=== PATIENT | male | born 1970 | race Caucasian/White ===

== ENCOUNTER → 2023-11-18 12:13 | Outpatient (REF) | payer MEDICARE, BC, SELFPAY ==
[2023-11-18 13:37] LABS: Urine Albumin Negative (Neg - Trace); Urine Bilirubin Negative (Negative); Urine Character Clear (Clear); Urine Color Yellow; Urine Glucose Negative (Negative); Urine Ketone Negative (Negative); Urine Leukocyte Negative (Negative); Urine Nitrite Negative (Negative); Urine Occult Blood 1+ (Negative); Urine Specific Gravity 1.025 (<1.030); Urine Urobilinogen Negative (Neg - 1+)
[2023-11-18 13:39] LABS: % Basophils 0.5 % (0-2); % Eosinophils 1.8 % (0-6); % Immature Granulocytes 0.3 % (0-0.5); % Lymphocytes 30.4 % (20.5-51.1); % Monocytes 7.7 % (1.7-9.3); % Neutrophils 59.3 % (42.2-75.2); Absolute Eosinophils 0.1 10^3/uL (0-0.7); Absolute Lymphocytes 1.9 10^3/uL (1.2-3.4); Absolute Monocytes 0.5 10^3/uL (0.1-0.6); Absolute Neutrophils 3.6 10^3/uL (1.4-6.5); Hematocrit 41.6 % (39.0-52.0); Hemoglobin 14.4 g/dL (13.0-18.0); Mean Corp Hgb Conc. 34.6 g/dL (33.0-37.0); Mean Corpuscular Hgb 29.5 pg (27.0-31.0); Mean Corpuscular Volume 85.2 fL (80.0-94.0); Mean Platelet Volume 11.6 fL (7.4-10.4); Nucleated Red Blood Cells % 0 % (-); Platelet Count 217 10^3/uL (130-400); Red Blood Cell Count 4.88 10^6/uL (4.70-6.10); Red Cell Dist. Width 12.2 % (11.5-14.5); White Blood Cell Count 6.1 10^3/uL (4.8-10.8)
[2023-11-18 14:01] LABS: Urine Mucus Many
[2023-11-18 14:02] LABS: Urine Red Blood Cell 0-2 /HPF (0-2); Urine White Cell 0-2 /HPF (0-5)
[2023-11-18 14:05] LABS: ALT (SGPT) 26 U/L (0-50); AST (SGOT) 26 U/L (17-59); Albumin 4.6 g/dl (3.5-5.0); Alkaline Phosphatase 44 U/L (38-126); Blood Urea Nitrogen 18 mg/dl (9-20); Calcium 9.5 mg/dl (8.4-10.2); Carbon Dioxide 31 mmol/L (22-30); Chloride 104 mmol/L (98-107); Glucose 86 mg/dl (70-99); Potassium 4.3 mmol/L (3.5-5.1); Sodium 141 mmol/L (135-145); Total Bilirubin 0.7 mg/dl (0.2-1.3); Total Protein 7.3 g/dl (6.3-8.2); eGFR > 60.00
[2023-11-18 14:42] LABS: PSA, Total - Screen 2.09 ng/ml (0.0-4.0)
== END ==
LOC: REG 12:13
PROVIDERS: ATTENDING PHYSICIAN Family Medicine
DX: R10.9 Unspecified abdominal pain (principal); R10.2 Pelvic and perineal pain; Z12.5 Encounter for screening for malignant neoplasm of prostate
CPT/HCPCS: 36415; 80053; 81003; 81015; 85025; 87086; G0103

== ENCOUNTER → 2023-11-20 10:22 | Outpatient (REF) | payer MEDICARE, BC, SELFPAY | LOC: RAD 10:22 | PROVIDERS: ATTENDING PHYSICIAN Family Medicine | DX: R10.9 Unspecified abdominal pain (principal); R10.2 Pelvic and perineal pain | CPT/HCPCS: 74178; Q9967 ==

== ENCOUNTER 2024-01-11 21:06 | Emergency (ER) | payer MEDICARE, SELFPAY ==
[2024-01-11 21:09] VITALS: BP 124/79
[2024-01-11 21:39] LABS: Hematocrit 40.6 % (39.0-52.0); Hemoglobin 14.5 g/dL (13.0-18.0); Mean Corp Hgb Conc. 35.7 g/dL (33.0-37.0); Mean Corpuscular Hgb 29.8 pg (27.0-31.0); Mean Corpuscular Volume 83.4 fL (80.0-94.0); Mean Platelet Volume 11.4 fL (7.4-10.4); Platelet Count 175 10^3/uL (130-400); Red Blood Cell Count 4.87 10^6/uL (4.70-6.10); Red Cell Dist. Width 12.2 % (11.5-14.5)
[2024-01-11 21:54] LABS: COVID-19 Antigen Positive (Negative)
[2024-01-11 21:58] LABS: Absolute Neutrophils -Man Diff 2.4 10^3/uL (1.4-6.5); Band Neutrophils 0 % (0-3); Lymphocytes 32 % (20-51); Monocytes 18 % (2-9); Segmented Neutrophils 48 % (42-75)
[2024-01-11 21:59] LABS: Atypical Lymphocytes 2 %; Normal RBC Morphology Yes; Platelets Checked Yes; Total Cells Counted 100
[2024-01-11 22:10] LABS: ALT (SGPT) 28 U/L (0-50); AST (SGOT) 34 U/L (17-59); Albumin 4.5 g/dl (3.5-5.0); Alkaline Phosphatase 46 U/L (38-126); Blood Urea Nitrogen 16 mg/dl (9-20); Calcium 9.5 mg/dl (8.4-10.2); Carbon Dioxide 30 mmol/L (22-30); Chloride 102 mmol/L (98-107); Glucose 97 mg/dl (70-99); Potassium 4.4 mmol/L (3.5-5.1); Sodium 140 mmol/L (135-145); Total Bilirubin 0.5 mg/dl (0.2-1.3); eGFR > 60.00
--- NOTE | 2024-01-11 22:33 | ED.GENMED ---
History of Present Illness
General
Chief Complaint: Fever
Source: patient and family (Mother)
Time Seen by Provider: 01/11/24 22:15
History of Present Illness
History of Present Illness:
For evaluation of fever.53-year-old male presents to the emergency room with his mother. Patient has a cough. He seems to be acting 'delusional' with a fever. Patient is awake and alert but allows his mom to answer questions for him. Mother also
concerned about a bacterial infection all over his body. Patient evidently had an abnormal CAT scan which showed 'inflammation in all the organs of his lower abdomen.'
Past History
Past History
ED Past Medical History: Hypercholesterolemia and Psychiatric (intellectual delay)
ED Past Surgical History: Other (Biopsy of the testicle)
Social History
Tobacco: Non-smoker
Personal: Single
Living: with family
Employment: Employed
Phy Exam
Physical Exam
Physical Exam:
General: Awake, Alert, Oriented X3. No acute distress.
Vitals: unremarkable
Head: Atraumatic
Eyes: Pupils equal, EOMI
Neck: Trachea midline
Lungs: Clear and equal b/l
Heart: Regular rate, no murmurs
Neuro: Grossly nonfocal
Skin: Warm, dry, no rash
Extremities: pulses equal b/l, no edema
Course
Orders/Labs/Results
Orders:
Orders
01/11/24 21:25
Complete Blood Count/With Diff Urgent
Comprehensive Metabolic Panel Urgent
Manual Differential Urgent
01/11/24 21:28
COVID-19 Antigen Urgent
Source: Nasal Swab
INF RAPID [Influenza A+B Rapid Molecular] Urgent
GINNY Source: Nasal Swab
Specimen Description:
01/11/24 22:35
Acetaminophen [Tylenol] 650 mg PO NOW STA
Abnormal Lab Results
01/11/24 01/11/24
21:25 21:28
MPV 11.4 H fL
(7.4-10.4)
Monocytes (Manual) 18 H %
(2-9)
SARS-CoV-2 Antigen Positive A
(Negative)
01/11/24 21:25
01/11/24 21:25
Vital Signs
Initial and Last Documented VS:
Initial Vital Signs
Temp Pulse Resp BP Pulse Ox
98.7 F 68 16 124/79 98
01/11/24 21:09 01/11/24 21:09 01/11/24 21:09 01/11/24 21:09 01/11/24 21:09
Last Documented Vital Signs
Temp Pulse Resp BP Pulse Ox
97.8 F 78 16 127/94 98
01/11/24 22:55 01/11/24 22:55 01/11/24 21:09 01/11/24 22:55 01/11/24 22:55
MDM/Problems Addressed
Differential Diagnosis Includes:
Viral illness
MDM/Problems Addressed:
Patient presents with fever and cough. He is not hypoxic. Labs were obtained in triage, CBC is normal. Chemistries are normal. COVID test is positive. Positive COVID test explains the patient's symptoms. Mom asked breast concerns about a
lesion in his lower abdomen. A CT scan was performed today which I reviewed the results of. It did show some inflammatory changes of the bladder as well as minimal inflammatory changes at the rectosigmoid colon. He had a urinalysis and urine
culture performed on November 17 which showed no growth. An outpatient investigation of these abnormalities is underway. Not believe any further testing is required here in the emergency room given we have a very reasonable explanation for his fever
with positive COVID test. Additionally the patient is not tachycardic. His blood pressure is normal. He is ambulatory in the room without any difficulty obvious discomfort.
*Critical Care Note
Total Time (30-74mins, 75-104mins- exclusive of procedures): Not Applicable
ED Attending Note
-
Portions of this chart may have been created with voice recognition software.� Occasional wrong word or��sound alike� substitutions may have occurred due to the inherent limitations of voice recognition software.
Discharge Plan
Departure
Patient Disposition: Home (Routine Discharge)
Date of Disposition: 01/11/24
Time of Disposition: 22:34
Patient with high blood pressure during this ER visit?: No
Condition: Good
Discharge Problem:
COVID-19
Instructions: COVID-19 ED
Prescriptions:
No Action
omega 4-ngw-iwc-fish oil [Fish Oil] 1 EACH capsule
1 - 3 ea PO DAILY
biotin 5,000 MCG tablet,disintegrating
5,000 mcg PO DAILY
Stinging Metal Root
1 - 2 tab PO DAILY
oxycodone 5 MG tablet
5 mg PO Q4HPRN PRN (Reason: breakthrough/severe pain) Qty: 7 0RF
nitrofurantoin monohyd/m-cryst [Macrobid] 100 mg capsule
100 mg PO Q12H 5 Days Qty: 10 0RF
Interventions
Interventions:
*Risk Screen - Suicide Last Done: 01/11/24 21:09
*General Assessment Last Done: 01/11/24 22:55
*Neglect/Abuse Screening Last Done: 01/11/24 22:55
*Nursing Disposition Last Done: 01/11/24 22:55
ED- Neurological Assessment Last Done: 01/11/24 22:56
ED-Skin Assessment Last Done: 01/11/24 22:56
Discharge Date and Time
Discharge Date/Time: 01/12/24 02:30
Print Language: PORTUGUESE
[2024-01-11] MEDS: TYLENOL 650 MG PO (22:39)
[2024-01-11 22:55] VITALS: BP 127/94
== END 2024-01-12 02:30 | disposition home or self-care (01) ==
LOC: EMR 21:06
PROVIDERS: Student in an Organized Health Care Education/Training Program; EMERGENCY PHYSICIAN Emergency Medicine
DX: U07.1 COVID-19 (principal); E78.00 Pure hypercholesterolemia, unspecified
CPT/HCPCS: 99283; 80053; 85025; 87502; 87811

== ENCOUNTER → 2024-02-11 15:45 | Outpatient (REF) | payer MEDICARE, SELFPAY ==
[2024-02-11 17:42] LABS: Urine Albumin Negative (Neg - Trace); Urine Bilirubin Negative (Negative); Urine Character Clear (Clear); Urine Color Yellow; Urine Glucose Negative (Negative); Urine Ketone Negative (Negative); Urine Leukocyte Negative (Negative); Urine Nitrite Negative (Negative); Urine Occult Blood Trace (Negative); Urine Specific Gravity 1.015 (<1.030); Urine Urobilinogen Negative (Neg - 1+)
[2024-02-11 17:59] LABS: Urine Red Blood Cell 0-2 /HPF (0-2)
== END ==
LOC: REG 15:45
PROVIDERS: ATTENDING PHYSICIAN Family Medicine
DX: N39.9 Disorder of urinary system, unspecified (principal); N40.0 Benign prostatic hyperplasia without lower urinary tract symptoms
CPT/HCPCS: 36415; 81003; 81015; 87086

== ENCOUNTER → 2024-03-28 06:24 | Day surgery (SDC) | payer MEDICARE, BC, SELFPAY | LOC: GI 06:24 | PROVIDERS: ATTENDING PHYSICIAN Internal Medicine Gastroenterology | DX: Z12.11 Encounter for screening for malignant neoplasm of colon (principal); K64.8 Other hemorrhoids | CPT/HCPCS: G0121 ==

== ENCOUNTER → 2024-04-27 17:22 | Outpatient (REF) | payer MEDICARE, BC, SELFPAY | LOC: MRI 17:22 | PROVIDERS: ATTENDING PHYSICIAN Psychiatry & Neurology Neurology; FAMILY PHYSICIAN Family Medicine | DX: G30.0 Alzheimer's disease with early onset (principal); F02.818 Dementia in other diseases classified elsewhere, unspecified severity, with other behavioral disturbance | CPT/HCPCS: 70551 ==

== ENCOUNTER → 2024-05-18 13:03 | Outpatient (REF) | payer MEDICARE, BC, SELFPAY | LOC: RAD 13:03 | PROVIDERS: ATTENDING PHYSICIAN Internal Medicine Endocrinology, Diabetes & Metabolism; FAMILY PHYSICIAN Family Medicine | DX: E04.2 Nontoxic multinodular goiter (principal) | CPT/HCPCS: 76536 ==

== ENCOUNTER → 2024-05-25 14:12 | Outpatient (REF) | payer MEDICARE, BC, SELFPAY ==
[2024-05-25 15:53] LABS: C-Reactive Protein < 5.00 mg/L (0.0-10.00)
[2024-05-25 15:54] LABS: Erythrocyte Sed Rate 8 mm/hour (0-20)
[2024-05-25 17:14] LABS: Hematocrit 40.8 % (39.0-52.0); Mean Corp Hgb Conc. 34.3 g/dL (33.0-37.0); Mean Corpuscular Hgb 30.4 pg (27.0-31.0); Mean Corpuscular Volume 88.5 fL (80.0-94.0); Mean Platelet Volume 11.9 fL (7.4-10.4); Platelet Count 203 10^3/uL (130-400); Red Blood Cell Count 4.61 10^6/uL (4.70-6.10); Red Cell Dist. Width 12.4 % (11.5-14.5)
[2024-05-27 10:49] LABS: Rheumatoid Agglutinin Less Than 10 IU (<10 IU)
[2024-05-28 06:34] LABS: ANA, IgG Reflex to HEp-2 None Detected (None Detected)
== END ==
LOC: REG 14:12
PROVIDERS: ATTENDING PHYSICIAN Family Medicine
DX: R68.89 Other general symptoms and signs (principal); E55.9 Vitamin D deficiency, unspecified; E78.5 Hyperlipidemia, unspecified; Z79.899 Other long term (current) drug therapy
CPT/HCPCS: 36415; 85027; 85652; 86038; 86140; 86430

== ENCOUNTER 2024-07-11 18:22 | Observation (INO) | payer MEDICARE, SELFPAY ==
[2024-07-11 15:06] VITALS: BP 98/72; BMI 27.2
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
[2024-07-11] MEDS: NSS 1000 IV (15:43)
[2024-07-11 16:00] VITALS: BP 99/68
[2024-07-11 16:03] LABS: % Basophils 0.4 % (0-2); % Eosinophils 1.4 % (0-6); % Immature Granulocytes 0.3 % (0-0.5); % Lymphocytes 20.4 % (20.5-51.1); % Monocytes 11.8 % (1.7-9.3); % Neutrophils 65.7 % (42.2-75.2); Absolute Eosinophils 0.1 10^3/uL (0-0.7); Absolute Lymphocytes 1.4 10^3/uL (1.2-3.4); Absolute Monocytes 0.8 10^3/uL (0.1-0.6); Absolute Neutrophils 4.6 10^3/uL (1.4-6.5); Hematocrit 40.7 % (39.0-52.0); Hemoglobin 13.6 g/dL (13.0-18.0); Mean Corp Hgb Conc. 33.4 g/dL (33.0-37.0); Mean Corpuscular Hgb 29.2 pg (27.0-31.0); Mean Corpuscular Volume 87.3 fL (80.0-94.0); Mean Platelet Volume 11.6 fL (7.4-10.4); Nucleated Red Blood Cells % 0 % (-); Platelet Count 206 10^3/uL (130-400); Red Blood Cell Count 4.66 10^6/uL (4.70-6.10); Red Cell Dist. Width 12.4 % (11.5-14.5)
[2024-07-11 16:12] LABS: Acetaminophen < 10 ug/ml (10-30); Blood Urea Nitrogen 24 mg/dl (9-20); Calcium 9.1 mg/dl (8.4-10.2); Carbon Dioxide 29 mmol/L (22-30); Chloride 105 mmol/L (98-107); Estimated Creatinine Clearance 80 ml/min; Glucose 106 mg/dl (70-99); Potassium 4.2 mmol/L (3.5-5.1); Salicylate < 1.0 mg/dl (2.0-20.0); Sodium 141 mmol/L (135-145); eGFR > 60.00
[2024-07-11 16:13] LABS: Alcohol None Detected
[2024-07-11 16:18] LABS: COVID-19 Antigen Negative (Negative)
[2024-07-11 16:39] VITALS: BP 101/66
[2024-07-11 16:51] LABS: TSH Reflex To Free T4 1.25 uIU/ml (0.47-4.68)
--- NOTE | 2024-07-11 16:52 | HPS.HSE ---
Family Physician
-
Family Physician: * NONE
Chief Complaint
-
confusion
History of Present Illness
53-year-old male with history of TBI, hyperlipidemia, hypotension presenting to the emergency department with change in mental status and urinary incontinence. Unfortunately given patient's TBI he is unable to provide any additional history.
patient sent in due to urinary incontinence and confusion more than usual.patient was combative at home. patient denied any acute pain. as per his mom, he acts this way when he gets UTI.
admitting for further management.
Medical History
Past Medical History
Past Medical History: Reports Other
Additional Past Medical History:
HLD
BPH
ADD
chest pain
Past Surgical History: Reports Other
Additional Past Surgical History:
nasal surgery
testicular surgery
cholecystectomy
Social History
Tobacco: Non-smoker
Alcohol: None
Drug: None
Living: With Family
Family History
Family History: Not pertinent
Allergies / Home Medications
Allergies reflects when Allergies were last updated in [facility].
Home Medications with original date entered in [facility]
Allergy/Medication List:
Allergies
Allergy/AdvReac Type Severity Reaction Status Date / Time
No Known Allergies Allergy Verified 07/11/24 15:06
Home Medications
Stinging Metal Root 1 - 2 tab PO DAILY 03/23/20
biotin 5,000 mcg disintegrating tablet 5,000 mcg PO DAILY 03/23/20
omega 0-hlx-byv-fish oil 300 mg-1,000 mg capsule (Fish Oil) 1 - 3 ea PO DAILY 03/23/20
oxycodone 5 mg tablet 5 mg PO Q4HPRN PRN breakthrough/severe pain #7 tabs 03/26/20
nitrofurantoin monohydrate/macrocrystals 100 mg capsule (Macrobid) 100 mg PO Q12H 5 days #10 caps 06/27/22
Review of Systems
-
Unable to obtain full review of systems at this time due to: Acuity
Physical Exam
Vital Signs
Vital Signs
Temp Pulse Resp BP Pulse Ox
98.1 F 70 18 98/72 98
07/11/24 15:06 07/11/24 15:06 07/11/24 15:06 07/11/24 15:06 07/11/24 15:06
Physical Exam
General: Well Developed, Well Nourished and No Apparent Distress
HEENT: NormoCephalic, Moist mucous membranes and Atraumatic
Respiratory: Clear
Cardiac: S1/S2 and Regular Rhythm; No Murmur or Rub
GI: Soft, Non Tender, Non Distended and Normal Bowel Sounds; No Organomegaly
Rectal: Deferred by Provider
Musculoskeletal: No Clubbing, No Cyanosis and No Edema
Skin: No Rash
Neuro: Nonfocal/grossly intact
Psych: Calm
Laboratory Results
-
07/11/24 15:46
07/11/24 15:46
Data Reviewed
-
Diagnostic Radiology: Report Reviewed by me
Lab Data: Labs Reviewed by me
Impression/Plan
-
#metabolic encephalopathy Unclear cause likely UTI
-UA negative
-CT negative
-chest x ray negative
-COVID and flu negative
-continue to monitor
-iv ceftriaxone
#hxt of TBI/ADD
#DVT prophylaxis
-Lovenox
#CODE status
-full code
--- NOTE | 2024-07-11 16:53 | EDRN ---
30MM CONDOM CATHETER APPLIED FOR URINE COLLECTION AND INCONTINENCE. PATIENT HAS EXISTING ABRASION TO ANTERIOR SHAFT OF PENIS.
[2024-07-11 17:00] VITALS: BP 110/72
--- NOTE | 2024-07-11 17:46 | W.PN.UPDATE ---
Update Note
Progress Note Update
This is an addendum to the H&P written by Lorraine Martínez on 07/11/2024. Patient seen and examined independently with SALES OPERATIONS MANAGER.
53-year-old male past medical history of TBI, hyperlipidemia, prior UTI presenting with change in mental status and urine incontinence for the past 2 days. Patient states that he has been having some urinary frequency and discomfort with urination.
Metabolic encephalopathy secondary to likely UTI. Urinalysis still pending. Chest x-ray negative. CT head negative. IV fluids, ceftriaxone.
[2024-07-11 20:44] VITALS: BP 115/60
[2024-07-12] MEDS: NSS 1000 IV (01:36)
[2024-07-12] MEDS: LOVENOX 40 MG SC ×2 (01:37→20:02)
[2024-07-12] MEDS: ROCEPHIN 1000 MG IV (01:40)
[2024-07-12] MEDS: STERILE WATER FOR INJECTION 10 ML IV (01:40)
[2024-07-12 01:46] VITALS: BP 97/58
[2024-07-12 06:00] VITALS: BMI 24.8
[2024-07-12 07:13] VITALS: BP 109/78
[2024-07-12 08:04] LABS: Urine Albumin Negative (Neg - Trace); Urine Bilirubin Negative (Negative); Urine Character Clear (Clear); Urine Color Yellow; Urine Glucose Negative (Negative); Urine Ketone Negative (Negative); Urine Leukocyte Negative (Negative); Urine Nitrite Negative (Negative); Urine Occult Blood 1+ (Negative); Urine Urobilinogen Negative (Neg - 1+)
[2024-07-12 08:08] LABS: Urine Red Blood Cell 0-2 /HPF (0-2); Urine Squamous Cell 0-2 /LPF (Few); Urine White Cell 0-2 /HPF (0-5)
--- NOTE | 2024-07-12 09:14 | W.PN.HOSP.TC ---
Today's Communication/Plan
-
Continued ceftriaxone pending cultures
PSA.
Renal bladder sonogram
Bladder scan rule out retention
Assessment / Plan
Assessment / Plan
Impression:
Presentation with agitation, urinary and bowel incontinence.
Suspected UTI.
Traumatic brain injury with developmental delay.
Plan:
Afebrile, hemodynamically stable
Currently with no urinary symptoms
Mental status back to normal/baseline.
Normal white count.
Normal urinalysis.
No abnormalities on chest x-ray.
COVID/influenza negative on admission.
Mother who is a retired physician describes a current episode of bowel and urinary incontinence.
In addition patient had been evaluated for pelvic pain with pending urology consult as outpatient.
CT scan of the abdomen pelvis from 11/19, findings consistent with diffuse urinary bladder wall thickening consistent with inflammation or infection.
Less likely UTI given normal urinalysis.
Continue ceftriaxone for another 24 to 48 hours.
Check PSA.
Check renal and bladder sonogram.
Bladder scan to rule out retention
Developmental delay/TBI.
Mental status back to normal with no focal findings on neurologic exam.
Patient with no prior history of seizures.
Not on any neurologic medications prior to presentation
Current presentation does not suggest a typical seizure as well.
Monitor while in the hospital
Anticipated Discharge: 24 - 48 hours
Subjective/Interval History
-
Date of Service: July 12, 2024
Objective Data
-
Vital Signs:
Vital Signs
Temp Pulse Resp BP Pulse Ox
98.3 F 72 18 109/78 99
07/11/24 20:44 07/12/24 07:13 07/12/24 07:13 07/12/24 07:13 07/12/24 07:13
Physical Exam
-
General: Well Developed and No Apparent Distress
HEENT: Normocephalic, Atraumatic and Moist Mucous Membranes
Respiratory: Clear to Auscultation
Cardiac: Regular Rhythm and S1/S2; Negative Murmur, Rub or Gallop
GI: Soft, Nontender, Nondistended and Normal Bowel Sounds; Negative Organomegaly
Rectal: Deferred by Provider
Musculoskeletal: No Clubbing, No Cyanosis and No Edema
Skin: Negative Rash
Neuro: Nonfocal/Grossly Intact
[2024-07-12 10:46] LABS: PSA, Total - Screen 2.18 ng/ml (0.0-4.0)
[2024-07-12] MEDS: NSS IV (15:43)
[2024-07-12 17:30] VITALS: BP 119/79
[2024-07-12 23:22] VITALS: BP 131/66
[2024-07-13] MEDS: ROCEPHIN 1000 MG IV (02:00)
[2024-07-13] MEDS: STERILE WATER FOR INJECTION 10 ML IV (02:01)
[2024-07-13 08:06] VITALS: BP 124/87
--- NOTE | 2024-07-13 15:04 | W.DS.TRANS ---
DC Summary - Recoverer
-
Discharge Instructions:
Discharge Diagnosis/Procedures Agitation
Diet Regular
Instructions:
Stand-Alone Forms:
Changes to Home Medications: No
Discharge Medications:
DC Medications w/original date entered in [facility]
No Meds [No Current Medications] 07/11/24
Home Medication Changes
Pending Results: No
[2024-07-13 15:28] VITALS: BP 116/77
== END 2024-07-13 16:30 | disposition home or self-care (01) ==
LOC: 3 WEST ACU 18:22
PROVIDERS: ADMITTING PHYSICIAN Hospitalist; ATTENDING PHYSICIAN Internal Medicine; EMERGENCY PHYSICIAN Student in an Organized Health Care Education/Training Program; FAMILY PHYSICIAN Family Medicine
DX: R45.1 Restlessness and agitation (principal); G93.41 Metabolic encephalopathy; R62.7 Adult failure to thrive; E78.00 Pure hypercholesterolemia, unspecified; I95.9 Hypotension, unspecified; R32 Unspecified urinary incontinence; F81.9 Developmental disorder of scholastic skills, unspecified; R05.9 Cough, unspecified; R15.9 Full incontinence of feces; R10.2 Pelvic and perineal pain; N28.1 Cyst of kidney, acquired; R44.1 Visual hallucinations; R41.0 Disorientation, unspecified; N40.0 Benign prostatic hyperplasia without lower urinary tract symptoms; Z87.820 Personal history of traumatic brain injury; Z86.16 Personal history of COVID-19; Z90.49 Acquired absence of other specified parts of digestive tract; Z11.52 Encounter for screening for COVID-19; Z12.5 Encounter for screening for malignant neoplasm of prostate
CPT/HCPCS: 70450; 71046; 76770; 80048; 80143; 80179; 81003; 81015; 82077; 84443; 85025; 87086; 87502; 87811; 93005; 96360; 99285; G0103; G0378

== ENCOUNTER 2024-08-13 13:36 | Emergency (ER) | payer MEDICARE, SELFPAY ==
[2024-08-13 13:45] VITALS: BP 110/76
[2024-08-13 13:46] VITALS: BP 110/76
[2024-08-13 14:00] VITALS: BP 100/71
[2024-08-13 14:10] LABS: Hematocrit 38.8 % (39.0-52.0); Hemoglobin 13.1 g/dL (13.0-18.0); Mean Corp Hgb Conc. 33.8 g/dL (33.0-37.0); Mean Corpuscular Hgb 29.4 pg (27.0-31.0); Mean Platelet Volume 11.2 fL (7.4-10.4); Platelet Count 130 10^3/uL (130-400); Red Blood Cell Count 4.46 10^6/uL (4.70-6.10); Red Cell Dist. Width 12.1 % (11.5-14.5); White Blood Cell Count 2.6 10^3/uL (4.8-10.8)
[2024-08-13 14:25] LABS: COVID-19 Antigen Negative (Negative)
[2024-08-13 14:40] LABS: ALT (SGPT) 50 U/L (0-50); AST (SGOT) 37 U/L (17-59); Alkaline Phosphatase 42 U/L (38-126); Blood Urea Nitrogen 17 mg/dl (9-20); Calcium 8.4 mg/dl (8.4-10.2); Carbon Dioxide 30 mmol/L (22-30); Chloride 103 mmol/L (98-107); Glucose 91 mg/dl (70-99); Potassium 4.6 mmol/L (3.5-5.1); Sodium 140 mmol/L (135-145); Total Bilirubin 0.6 mg/dl (0.2-1.3); Total Protein 6.4 g/dl (6.3-8.2); eGFR > 60.00
[2024-08-13 14:50] LABS: % Basophils 0.4 % (0-2); % Eosinophils 2.3 % (0-6); % Lymphocytes 54.7 % (20.5-51.1); % Monocytes 13.6 % (1.7-9.3); Absolute Eosinophils 0.1 10^3/uL (0-0.7); Absolute Lymphocytes 1.4 10^3/uL (1.2-3.4); Absolute Monocytes 0.4 10^3/uL (0.1-0.6); Absolute Neutrophils 0.8 10^3/uL (1.4-6.5); Nucleated Red Blood Cells % 0 % (-)
[2024-08-13 15:27] VITALS: BP 125/85
--- NOTE | 2024-08-13 19:08 | ED.GENMED ---
History of Present Illness
General
Chief Complaint: Cold/Flu/URI Symptoms
Source: patient and family
Exam Limitations: none
Time Seen by Provider: 08/13/24 18:05
Nursing documentation reviewed up to this point in time: agreed with
History of Present Illness
History of Present Illness:
Patient with history of TBI, presents to ED secondary to intermittent cough over the past couple of days. Information obtained from the paramedics, who spoke with patient's mother. Upon arrival, patient is alert and awake, but confused, and unable
to provide any further information. Per paramedics, his mental status at his baseline.
Past History
Past History
ED Past Medical History: Hypercholesterolemia and Psychiatric (intellectual delay)
ED Past Surgical History: Other (Biopsy of the testicle)
Social History
Tobacco: Non-smoker
Personal: Single
Living: with family
Employment: Employed
Review of Systems
Review of Systems
Allergies reviewed?: Yes
Unable to obtain full review of systems at this time due to: other (TBI)
All Other Systems: Not applicable
Phy Exam
Physical Exam
Physical Exam:
Physical Exam
General: no apparent distress, not acutely ill. afebrile
Head: nc/at. eomi
Neck: supple. normal range of motion.
Heart: s1/s2 regular rate and rhythm, no murmur.
Lungs: no acute respiratory distress. clear bilaterally
Abdomen: normal bowel sounds. not tender.
Neuro: alert and oriented x 1. no focal neurological deficits
Skin: no rash
Psychiatric: well kept. interactive
Extremities: no edema. no calf tenderness.
Course
Orders/Labs/Results
Orders:
Orders
08/13/24 13:41
Electrocardiogram (*1) Urgent
Reason for Study: Other
Other Reason for Exam: cough
CR Chest - 2 Views Urgent
Comment:
Reason For Exam: cough
08/13/24 13:42
EKG- Treatment ONCE
08/13/24 13:50
COVID-19 Antigen Urgent
Source: Nasal Swab
Complete Blood Count/With Diff Urgent
Comprehensive Metabolic Panel Urgent
Influenza A+B Rapid Molecular Urgent
GINNY Source: Nasal Swab
Specimen Description:
Abnormal Lab Results
08/13/24
13:50
WBC 2.6 L 10^3/uL
(4.8-10.8)
RBC 4.46 L 10^6/uL
(4.70-6.10)
Hct 38.8 L %
(39.0-52.0)
MPV 11.2 H fL
(7.4-10.4)
Absolute Neuts (auto) 0.8 L* 10^3/uL
(1.4-6.5)
Neutrophils % 29.0 L %
(42.2-75.2)
Lymphocytes % 54.7 H %
(20.5-51.1)
Monocytes % 13.6 H %
(1.7-9.3)
08/13/24 13:50
08/13/24 13:50
Vital Signs
Initial and Last Documented VS:
Initial Vital Signs
Pulse Resp Pulse Ox
70 16 96
08/13/24 13:44 08/13/24 13:44 08/13/24 13:44
Last Documented Vital Signs
Temp Pulse Resp BP Pulse Ox
97.8 F 73 17 125/85 100
08/13/24 13:45 08/13/24 15:47 08/13/24 15:30 08/13/24 15:27 08/13/24 15:30
MDM/Problems Addressed
MDM/Problems Addressed:
Influenza positive. Patient otherwise is afebrile, hemodynamically stable, and is without any acute distress during observation. Patient is not a candidate for Tamiflu, as there is unclear duration of symptoms.
*Critical Care Note
Total Time (30-74mins, 75-104mins- exclusive of procedures): Not Applicable
ED Attending Note
-
Portions of this chart may have been created with voice recognition software.� Occasional wrong word or��sound alike� substitutions may have occurred due to the inherent limitations of voice recognition software.
Discharge Plan
Departure
Patient Disposition: Home (Routine Discharge)
Date of Disposition: 08/13/24
Time of Disposition: :25
Patient with high blood pressure during this ER visit?: Yes
Condition: Good
Discharge Problem:
Influenza
Instructions: Flu in adults - ED discharge instructions
Prescriptions:
No Action
No Current Medications
0
Referrals:
UNKNOWN - PT DOES,NOT KNOW [Family Provider] -
Activity Restrictions/Additional Instructions:
As discussed, please follow-up with your primary care physician with any further concerns.
Interventions
Interventions:
*Risk Screen - Suicide Last Done: 08/13/24 13:45
*General Assessment Last Done: 08/13/24 13:45
*Neglect/Abuse Screening Last Done: 08/13/24 13:45
ED- Fall Risk Assessment Last Done: 08/13/24 14:05
*ED COVID-19 Vaccine History Last Done: 08/13/24 13:45
*Nursing Disposition Last Done: 08/13/24 21:01
ED- Pulmonary Assessment Last Done: 08/13/24 14:05
Discharge Date and Time
Discharge Date/Time: 08/13/24 21:02
Print Language: LIBYAN
== END 2024-08-13 21:02 | disposition home or self-care (01) ==
LOC: EMR 13:36
PROVIDERS: Emergency Medicine; EMERGENCY PHYSICIAN Emergency Medicine
DX: J10.1 Influenza due to other identified influenza virus with other respiratory manifestations (principal); R03.0 Elevated blood-pressure reading, without diagnosis of hypertension; Z87.820 Personal history of traumatic brain injury; Z11.52 Encounter for screening for COVID-19
CPT/HCPCS: 99285; 71046; 80053; 85025; 87502; 87811; 93005

== ENCOUNTER 2024-09-03 16:06 | Emergency (ER) | payer MEDICARE, BC, SELFPAY ==
[2024-09-03 16:07] VITALS: BP 125/80
[2024-09-03 16:22] LABS: % Basophils 0.5 % (0-2); % Eosinophils 2.1 % (0-6); % Immature Granulocytes 0.2 % (0-0.5); % Lymphocytes 27.2 % (20.5-51.1); Absolute Eosinophils 0.1 10^3/uL (0-0.7); Absolute Lymphocytes 1.7 10^3/uL (1.2-3.4); Absolute Monocytes 0.7 10^3/uL (0.1-0.6); Absolute Neutrophils 3.7 10^3/uL (1.4-6.5); Hematocrit 38.3 % (39.0-52.0); Hemoglobin 13.1 g/dL (13.0-18.0); Mean Corp Hgb Conc. 34.2 g/dL (33.0-37.0); Mean Corpuscular Hgb 29.9 pg (27.0-31.0); Mean Corpuscular Volume 87.4 fL (80.0-94.0); Mean Platelet Volume 11.6 fL (7.4-10.4); Nucleated Red Blood Cells % 0 % (-); Platelet Count 186 10^3/uL (130-400); Red Blood Cell Count 4.38 10^6/uL (4.70-6.10); Red Cell Dist. Width 12.8 % (11.5-14.5); White Blood Cell Count 6.3 10^3/uL (4.8-10.8)
[2024-09-03 16:44] LABS: ALT (SGPT) 24 U/L (0-50); AST (SGOT) 23 U/L (17-59); Albumin 4.3 g/dl (3.5-5.0); Alkaline Phosphatase 52 U/L (38-126); Blood Urea Nitrogen 17 mg/dl (9-20); Calcium 9.4 mg/dl (8.4-10.2); Carbon Dioxide 29 mmol/L (22-30); Chloride 104 mmol/L (98-107); Glucose 98 mg/dl (70-99); Sodium 140 mmol/L (135-145); Total Bilirubin 0.9 mg/dl (0.2-1.3); Total Protein 6.5 g/dl (6.3-8.2); eGFR > 60.00
[2024-09-03 17:47] VITALS: BP 125/77
[2024-09-03 17:53] VITALS: BMI 22.2
[2024-09-03 18:10] LABS: COVID-19 Antigen Negative (Negative)
[2024-09-03 19:25] VITALS: BP 128/78
[2024-09-03] MEDS: NSS 1000 IV (19:35)
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
--- NOTE | 2024-09-03 20:29 | ED.GENMED ---
History of Present Illness
General
Chief Complaint: Skin Problem
Source: patient
Exam Limitations: none
Time Seen by Provider: 09/03/24 17:15
History of Present Illness
History of Present Illness:
53-year-old male presents with mother who is his caregiver who states the patient looks off in color he has a history of TBI. He is not provide significant history. Mother claims that something is wrong with him. He has been acting differently.
He was here in June admitted to the hospital for similar complaints. He has CT of his head at that time and workup otherwise was negative. Mother is concerned that he has something going on in his abdomen as he tried to have a bowel movement
today and missed the toilet. When asked directly if the patient is in pain he responds with no. Mother requesting full workup to evaluate what is going on including CAT scan of his abdomen urinalysis blood work
Past History
Past History
ED Past Medical History: Hypercholesterolemia and Psychiatric (intellectual delay)
ED Past Surgical History: Other (Biopsy of the testicle)
Social History
Tobacco: Non-smoker
Personal: Single
Living: with family
Employment: Employed
Phy Exam
Physical Exam
Physical Exam:
General: Well-appearing male no acute distress resting comfortably
HEENT: Normocephalic sclera anicteric neck is supple mucosa moist
Heart: Regular rate and rhythm no murmurs
Lungs: Clear no wheeze
Abdomen is soft nontender nondistended no guarding or rebound normal bowel sounds
Extremities: No cyanosis or edema
Skin is without jaundice no rash or lesions warm and dry
Neurologic exam: Alert making appropriate eye contact response to yes or no questions.
Course
Orders/Labs/Results
Orders:
Orders
09/03/24 16:13
CMP [Comprehensive Metabolic Panel] Urgent
Complete Blood Count/With Diff Urgent
09/03/24 17:38
Bladder Scan- Treatment ONCE
Urinalysis Reflex To Culture Urgent
Date Specimen was Collected: 09/03/24
Time Specimen was Collected: 18:06
09/03/24 17:42
CR Chest - 2 Views Urgent
Comment:
Reason For Exam: weakness
09/03/24 17:48
COVID-19 Antigen Urgent
Source: Nasal Swab
Influenza A+B Rapid Molecular Urgent
GINNY Source: Nasal Swab
Specimen Description:
09/03/24 19:11
CT Abd/pelvis W Iv Cont Urgent
Comment:
Reason For Exam: abdominal pain
09/03/24 19:18
CT Head W/o Iv Contrast Urgent
Comment:
Reason For Exam: confusion
09/03/24 19:19
0.9% Sodium Chloride 1000 ml [Nss] 1,000 ml IV BOLUS
Abnormal Lab Results
09/03/24
16:13
RBC 4.38 L 10^6/uL
(4.70-6.10)
Hct 38.3 L %
(39.0-52.0)
MPV 11.6 H fL
(7.4-10.4)
Absolute Monos (auto) 0.7 H 10^3/uL
(0.1-0.6)
Monocytes % 11.0 H %
(1.7-9.3)
09/03/24 16:13
09/03/24 16:13
Vital Signs
Initial and Last Documented VS:
Initial Vital Signs
Temp Pulse Resp BP Pulse Ox
98.3 F 76 18 125/80 100
09/03/24 16:07 09/03/24 16:07 09/03/24 16:07 09/03/24 16:07 09/03/24 16:07
Last Documented Vital Signs
Temp Pulse Resp BP Pulse Ox
98.2 F 67 15 128/78 100
09/03/24 19:31 09/03/24 20:00 09/03/24 20:00 09/03/24 19:25 09/03/24 19:00
MDM/Problems Addressed
Differential Diagnosis Includes:
Patient overall. Mother states that the patient looked yellow however there is no evidence of jaundice on my exam. Labs reviewed showing normal bilirubin normal liver functions and normal blood count. Did for COVID and flu as well as performed
chest x-ray which is negative. Mother with CAT scan of abdomen. Due to the strong request and the lack of history from the patient I did order CT of the abdomen pelvis with IV contrast as well as the head. Mother was out of the room several times
throughout the stay. While waiting for CAT scan mother got agitated and started complaining about the care they were receiving. She took the patient and left without receiving any further treatment. They have eloped.
Case was discussed with emergency room attending
*Critical Care Note
Total Time (30-74mins, 75-104mins- exclusive of procedures): Not Applicable
ED Attending Note
-
Portions of this chart may have been created with voice recognition software.� Occasional wrong word or��sound alike� substitutions may have occurred due to the inherent limitations of voice recognition software.
Discharge Plan
Departure
Patient Disposition: Elopement
Date of Disposition: 09/03/24
Time of Disposition: 20:32
Patient with high blood pressure during this ER visit?: No
Discharge Problem:
Altered mental status
Prescriptions:
No Action
No Current Medications
0
Referrals:
Neal Padgett DO [Family Provider] -
Interventions
Interventions:
*Risk Screen - Suicide Last Done: 09/03/24 17:54
*General Assessment Last Done: 09/03/24 17:53
*Neglect/Abuse Screening Last Done: 09/03/24 17:53
*ED- Fall Risk Assessment Last Done: 09/03/24 17:53
*ED COVID-19 Vaccine History Last Done: 09/03/24 17:53
ED-Skin Assessment Last Done: 09/03/24 19:31
Discharge Date and Time
Print Language: WALLISIAN
== END 2024-09-03 20:27 | disposition left against medical advice (07) ==
LOC: EMR 16:06
PROVIDERS: Physician Assistant; EMERGENCY PHYSICIAN Emergency Medicine; FAMILY PHYSICIAN Family Medicine
DX: R41.82 Altered mental status, unspecified (principal); E78.00 Pure hypercholesterolemia, unspecified; Z87.820 Personal history of traumatic brain injury
CPT/HCPCS: 99283; 96360; 71046; 80053; 85025; 87502; 87811

== ENCOUNTER 2024-12-22 19:39 | Emergency (ER) | payer MEDICARE, BC, SELFPAY ==
[2024-12-22 19:46] VITALS: BP 119/82
[2024-12-22 20:00] VITALS: BP 111/73
[2024-12-22 20:22] LABS: % Basophils 0.6 % (0-2); % Eosinophils 3.4 % (0-6); % Immature Granulocytes 0.2 % (0-0.5); % Lymphocytes 37.5 % (20.5-51.1); % Monocytes 11.1 % (1.7-9.3); % Neutrophils 47.2 % (42.2-75.2); Absolute Eosinophils 0.2 10^3/uL (0-0.7); Absolute Lymphocytes 1.9 10^3/uL (1.2-3.4); Absolute Monocytes 0.6 10^3/uL (0.1-0.6); Absolute Neutrophils 2.4 10^3/uL (1.4-6.5); Hematocrit 37.9 % (39.0-52.0); Hemoglobin 13.1 g/dL (13.0-18.0); Mean Corp Hgb Conc. 34.6 g/dL (33.0-37.0); Mean Corpuscular Volume 86.7 fL (80.0-94.0); Mean Platelet Volume 11.3 fL (7.4-10.4); Nucleated Red Blood Cells % 0 % (-); Platelet Count 178 10^3/uL (130-400); Red Blood Cell Count 4.37 10^6/uL (4.70-6.10); Red Cell Dist. Width 12.3 % (11.5-14.5)
[2024-12-22 20:38] LABS: ALT (SGPT) 23 U/L (0-50); AST (SGOT) 21 U/L (17-59); Alkaline Phosphatase 37 U/L (38-126); Blood Urea Nitrogen 25 mg/dl (9-20); Carbon Dioxide 27 mmol/L (22-30); Chloride 111 mmol/L (98-107); Glucose 79 mg/dl (70-99); Potassium 3.9 mmol/L (3.5-5.1); Sodium 142 mmol/L (135-145); Total Bilirubin 0.5 mg/dl (0.2-1.3); Total Protein 6.4 g/dl (6.3-8.2); eGFR > 60.00
--- NOTE | 2024-12-22 21:10 | ED.GENMED ---
History of Present Illness
General
Chief Complaint: Generalized Pain
Source: patient and family (Mother at bedside)
Exam Limitations: altered mental status (Patient with TBI)
Time Seen by Provider: 12/22/24 19:57
History of Present Illness
History of Present Illness:
54 yo male with h/o TBI, mother with him, ranting on and on 'you have to do something with him...he's just getting worse and worse...' 'I was supposed to take him to [facility] for cancer and today but do you know how much it costs to get up
there...He has another appointment there on December 26.' Someone has to do something, he needs a CAT scan.' 'He's holding his penis, running to the bathroom...he's peeing all over the place.' Telling staff we need to scan him to check for cancer.
Past History
Past History
ED Past Medical History: Hypercholesterolemia and Psychiatric (intellectual delay, TBI)
ED Past Surgical History: Other (Biopsy of the testicle)
Social History
Tobacco: Non-smoker
Personal: Single
Living: with family
Employment: Employed
Review of Systems
Review of Systems
Allergies reviewed?: Yes
All Other Systems: ROS reviewed and negative except as documented in HPI and ROS
Constitutional: Denies fever
Respiratory: Denies trouble breathing
Cardiac: Denies chest pain
ABD/GI: Denies abdominal pain, vomiting or diarrhea
: Reports other (mother informs that he is 'peeing all over the place')
Musculoskeletal: Reports no symptoms
Skin: Reports no symptoms
Neurological: Denies headache
Phy Exam
Physical Exam
Physical Exam:
GENERAL: No acute distress. Alert, states name correctly, cannot state his address or this place.
CONSTITUTIONAL: Afebrile.
EYES: clear, conjunctivae normal
ENMT: moist mucus membranes, Pharynx nl
RESPIRATORY: Regular respirations, nonlabored, lungs clear.
CARDIOVASCULAR: Regular rate and rhythm, no murmurs, no rubs.
GI: Soft, nontender, normal BS
MUSCULOSKELETAL: Moves with ease. Well perfused.
SKIN: Warm, dry, pink
PSYCH: Normal mood and affect. Well kept, interactive and appropriate
NEUROLOGIC: Awake, alert and oriented. Speech clear. Follows commands appropriately. No focal neurological deficits
Course
Orders/Labs/Results
Orders:
Orders
12/22/24 20:09
Complete Blood Count/With Diff Urgent
Comprehensive Metabolic Panel Urgent
12/22/24 20:11
Bladder Scan- Treatment ONCE
12/22/24 21:24
Urinalysis Reflex To Culture Urgent
Date Specimen was Collected: 12/22/24
Time Specimen was Collected: 21:23
Urine Microscopic Reflex Cult Urgent
Abnormal Lab Results
12/22/24 12/22/24
20:09 21:24
RBC 4.37 L 10^6/uL
(4.70-6.10)
Hct 37.9 L %
(39.0-52.0)
MPV 11.3 H fL
(7.4-10.4)
Monocytes % 11.1 H %
(1.7-9.3)
Chloride 111 H mmol/L
(98-107)
BUN 25 H mg/dl
(9-20)
Alkaline Phosphatase 37 L U/L
(38-126)
Ur Occult Blood Reflex 2+ A
(Negative)
Urine RBC 3-6 A /HPF
(0-2)
Urine Bacteria (Reflex) Few A
(Negative)
12/22/24 20:09
12/22/24 20:09
Vital Signs
Initial and Last Documented VS:
Initial Vital Signs
Temp Pulse Resp Pulse Ox
98.6 F 63 20 99
12/22/24 19:45 12/22/24 19:45 12/22/24 19:45 12/22/24 19:45
Last Documented Vital Signs
Temp Pulse Resp BP Pulse Ox
98.8 F 60 18 121/81 100
12/22/24 20:00 12/22/24 21:28 12/22/24 21:28 12/22/24 21:28 12/22/24 21:28
MDM/Problems Addressed
MDM/Problems Addressed:
54 yo male with h/o TBI, mother with him, ranting on and on 'you have to do something with him...he's just getting worse and worse...' 'I was supposed to take him to [facility] for cancer and today but do you know how much it costs to get up
there...He has another appointment there on December 26.' Some on has to do something, he needs a CAT scan.' 'He's holding his penis, running to the bathroom...he's peeing all over the place.' Telling staff we need to scan him to check for cancer.
Afebrile, NAD
States 'No' when asked if he has pain anywhere or if his belly hurts. He cannot say where he is. Not a good historian.
Abdomen benign.
9:15 PM:
CBC normal
CMP with no clinically significant abnormality
Pt laying quietly, mom at bedside on phone
Pt standing out of bed, urinated in urinal without problem
10:15 PM:
U/A neg
In to speak with mom. Explained that his lab work and urine show nothing worrisome and encouraged her to Keep her appointment at [place] with his urologist
She is from [place] and her vascular doctor is in [place]. That is why she made the appointment in [place]. She says she called all around [place] could not get any appointments with any urologist.
I offered to refer her to a urologist here and she states she has been there before and he did nothing and she complained about him and she does not want to see anybody in that practice.
I spent 20 minutes in the room with her addressing all her concerns, explaining he is stable, no acute abnormality needing emergency attention. Trying to reassure her nothing to indicate need for imaging, explaining the risk of cancer with so much
imaging, when I told her there is no indication of imaging at this time, she became angry and belligerent insisting that he have a 'CAT scan, something to figure out what's wrong with him!' You're all lying to me, I don't like people who lie to me.
Yelling as she was escorted with her son in wheelchair out to .
Son has been calm and in no distress entire visit.
*Pulse Oximetry
SaO2: 97
Oxygen Mode of Delivery: Room air
Patient hypoxic: no
*Critical Care Note
Total Time (30-74mins, 75-104mins- exclusive of procedures): Not Applicable
ED Attending Note
-
Portions of this chart may have been created with voice recognition software.� Occasional wrong word or��sound alike� substitutions may have occurred due to the inherent limitations of voice recognition software.
Discharge Plan
Departure
Patient Disposition: Home (Routine Discharge)
Date of Disposition: 12/22/24
Time of Disposition: 22:27
Patient with high blood pressure during this ER visit?: No
Condition: Good
Discharge Problem:
Urine abnormality
Prescriptions:
No Action
No Current Medications
0
Referrals:
Neal Padgett DO [Family Provider, Family Practice]
Activity Restrictions/Additional Instructions:
As we discussed, Tony's urine and blood work results show nothing worrisome.
Keep your appointment with [facility] in [place] as scheduled. He needs to be evaluated by the Urologist and Oncologist like you said.
Interventions
Interventions:
*Risk Screen - Suicide Last Done: 12/22/24 20:38
*General Assessment Last Done: 12/22/24 19:46
*Neglect/Abuse Screening Last Done: 12/22/24 20:38
*Nursing Disposition Last Done: 12/22/24 22:45
Discharge Date and Time
Discharge Date/Time: 12/22/24 22:51
Print Language: [place] LUCI[place]
[2024-12-22 21:28] VITALS: BP 121/81
[2024-12-22 21:32] LABS: Urine Albumin Negative (Neg - Trace); Urine Bilirubin Negative (Negative); Urine Character Clear (Clear); Urine Color Yellow; Urine Glucose Negative (Negative); Urine Ketone Negative (Negative); Urine Leukocyte Negative (Negative); Urine Nitrite Negative (Negative); Urine Occult Blood 2+ (Negative); Urine Specific Gravity 1.025 (<1.030); Urine Urobilinogen Negative (Neg - 1+)
[2024-12-22 21:36] LABS: Urine Squamous Cell 0-2 /LPF (Few)
[2024-12-22 21:37] LABS: Urine Bacteria Few (Negative); Urine White Cell 0-2 /HPF (0-5)
[2024-12-22 21:38] LABS: Urine Mucus Moderate
== END 2024-12-22 22:51 | disposition home or self-care (01) ==
LOC: EMR 19:39
PROVIDERS: Registered Nurse; EMERGENCY PHYSICIAN Emergency Medicine; FAMILY PHYSICIAN Family Medicine
DX: R82.90 Unspecified abnormal findings in urine (principal); E78.00 Pure hypercholesterolemia, unspecified; Z87.820 Personal history of traumatic brain injury
CPT/HCPCS: 99283; 80053; 81003; 81015; 85025; 94640

== ENCOUNTER 2025-03-07 14:24 | Observation (INO) | payer MEDICARE, BC, SELFPAY ==
[2025-02-23 11:24] VITALS: BP 112/76
[2025-02-23 11:30] VITALS: BP 112/76
--- NOTE | 2025-02-23 11:38 | ED.GENMED ---
History of Present Illness
<Kamar Lugo PA-C - Last Filed: 02/26/25 10:04>
General
Chief Complaint: Social Service Referral
Source: patient and ambulance crew
Time Seen by Provider: 02/23/25 11:24
History of Present Illness
History of Present Illness:
54-year-old male with history of traumatic brain injury lives with his parents presents via EMS after area of aging was performing a visit. Performing a visit based on a recent hospital stay of which she left AMA per EMS. Per EMS, area for aging
was involved as there is a investigation for guardianship for this patient. The patient's father has dementia. The mother has been caring for both of them however they are questioning the competency of the mother at this time. Were told that
there is a current investigation going on. Patient himself has no complaints otherwise.
Past History
<MARYANN Oakes Last Filed: 02/26/25 10:04>
Past History
ED Past Medical History: Hypercholesterolemia and Psychiatric (intellectual delay, TBI)
ED Past Surgical History: Other (Biopsy of the testicle)
Social History
Tobacco: Non-smoker
Personal: Single
Living: with family
Employment: Employed
Phy Exam
<MARYANN Oakes Last Filed: 02/26/25 10:04>
Physical Exam
Physical Exam:
General: Well-appearing male no respiratory distress
HEENT: Normocephalic atraumatic
Heart: Regular rate and rhythm
Lungs: Clear no wheeze
Extremities: No cyanosis
Course
<MARYANN Oakes Last Filed: 02/26/25 10:04>
Orders/Labs/Results
Orders:
Orders
02/23/25 11:36
Case Management Consult ONCE
Case Management Consult: Discharge Planning
02/24/25 Breakfast
Regular
At Your Request: Limited Participation
02/24/25 21:41
Lorazepam [Ativan] 0.5 mg PO NOW STA
Vital Signs
Initial and Last Documented VS:
Initial Vital Signs
BP
112/76
02/23/25 11:24
Last Documented Vital Signs
Temp Pulse Resp BP Pulse Ox
97.8 F 66 17 125/65 100
02/26/25 08:00 02/26/25 08:00 02/26/25 08:00 02/26/25 08:00 02/26/25 08:00
<Redd Wilson DO - Last Filed: 02/23/25 15:40>
Orders/Labs/Results
Orders:
Orders
02/23/25 11:36
Case Management Consult ONCE
Case Management Consult: Discharge Planning
02/24/25 Breakfast
Regular
At Your Request: Limited Participation
02/24/25 21:41
Lorazepam [Ativan] 0.5 mg PO NOW STA
Vital Signs
Initial and Last Documented VS:
Initial Vital Signs
BP
112/76
02/23/25 11:24
Last Documented Vital Signs
Temp Pulse Resp BP Pulse Ox
97.8 F 66 17 125/65 100
02/26/25 08:00 02/26/25 08:00 02/26/25 08:00 02/26/25 08:00 02/26/25 08:00
<Kamar Lugo PA-C - Last Filed: 02/26/25 10:04>
*Pulse Oximetry
SaO2: 98
Oxygen Mode of Delivery: Room air
Patient hypoxic: no
*Critical Care Note
Total Time (30-74mins, 75-104mins- exclusive of procedures): Not Applicable
<Kamar Lugo PA-C - Last Filed: 02/26/25 10:04>
Update Note
Update Note:
Discussed case with emergency room attending as well as dependency case manager here in the hospital and the patient's dependency case manager at home. Area for aging has apparently deemed both parents incompetent. Patient has no place to stay. He has been calm and
cooperative here. Case management disposition pending
ED Attending Note
<Kamar Lugo PA-C - Last Filed: 02/26/25 10:04>
-
Portions of this chart may have been created with voice recognition software.� Occasional wrong word or��sound alike� substitutions may have occurred due to the inherent limitations of voice recognition software.
<Redd Wilson DO - Last Filed: 02/23/25 15:40>
ED Attending Note
Patient seen and examined by attending physician: Yes
I performed the substantive portion of visit, reviewed & personally made and approve the management plan that is documented in note by myself or TJ.: Yes
ED Attending Note:
I agree with Juan Antonio's note.
Patient brought to the emergency room essentially for monitoring after web content & social media manager evaluated the patient's home. Patient is actually fairly well-known to the emergency room from previous visits. Patient's father has significant dementia.
Patient's mother has frequently been argumentative and disruptive in a rational way when bringing the patient to the emergency room. It sounds like the [facility] agency on the aging is in the process of deeming the patient's mother incompetent. Patient
has nowhere else to reside at this point. He has no complaints. He is somewhat childlike but is able to answer simple questions appropriately.
General: Awake, Alert, Oriented X3. No acute distress.
Vitals: unremarkable
Head: Atraumatic
Eyes: Pupils equal, EOMI
Throat: Airway intact, no exudates
Neck: Trachea midline
Neuro: C nonfocal
Skin: Warm, dry, no rash
Extremities: pulses equal b/l, no edema
15:38 Multiple conversations had with hospital ministration, case management. The current state of affairs is that we will not discharge the patient back to his parents residence. Until official documentation on his mother's incompetence is
produced we cannot legally prevent her from taking the patient home with her. However we will not actively discharge to that home.
Discharge Plan
Departure
Patient Disposition: Assisted Living
Date of Disposition: 02/23/25
Time of Disposition: 15:41
Discharge Problem:
Social service referral
Prescriptions:
No Action
lorazepam 0.5 mg Tablet
0.5 mg PO DAILYPRN PRN (Reason: agitation)
Referrals:
NONE,* [Family Provider, Internal Medicine]
Interventions
Interventions:
*Risk Screen - Suicide Last Done: 02/23/25 11:30
*General Assessment Last Done: 02/23/25 11:30
*Neglect/Abuse Screening Last Done: 02/23/25 11:30
*ED- Fall Risk Assessment Last Done: 02/23/25 11:30
*ED COVID-19 Vaccine History Last Done: 02/23/25 11:30
ED-Psychological Assessment Last Done: 02/25/25 20:00
Discharge Date and Time
Print Language: INDONESIAN
--- NOTE | 2025-02-23 12:18 | CM ---
Addendum entered by Gabrielle Glaser 02/23/25 17:20:
I sent message to Maria A asking her to email me any documentation she has on competency and pt's ability to live independently for our records, awaiting response
Addendum entered by Gabrielle Glaser 02/23/25 16:08:
I just spoke to Maria A, she left vm and sent text message to pt's sister Mary Jo. She is awaiting a call back.
Addendum entered by Gabrielle Glaser 02/23/25 15:52:
I spoke to Kirsty ([phone]), she is Tony's parents case filler. Pt's marshmallow machine worker from Adult [employer]ctive [facility] Maria A Lewis ([phone]) came to see him in ED. She met with me, Rosalee, ED Director and Miriam from Administration,
and Crystal Carrasco from [facility]. Per Maria A, pt's parents have been deemed incapacitated, paperwork will not be done until Thursday and can take 30 days to be official. Per Lori, Tony needs to be placed on 1:1 observation and his mother cannot come and
take him from the ED. Pt's nurse Chelsea made aware. Per Maria A, she is planning to reach out to pt's sister Mary Jo [phone] to see if she can come and pick Tony up.
Original Note:
Received CM consult, per ED nurse Chelsea, [facility] Agency on Aging was at pt's house and his mother would not allow them to speak to pt. EMS was called and Tony was sent to ED. I called [facility] on [facility] [phone] and left a VM
for case filler Analia Varghese requesting a call back to discuss plan for Tony.
--- NOTE | 2025-02-23 16:07 | EDRN ---
Along with case management, I spoke with Maria A Lewis, the APS Butcher Helper for Tony in-person earlier today and by phone [phone]. Per Maria A, she is attempting to make contact with patient's sister, Mary Jo, who lives in [place]. Awaiting
further updates from Maria A.
[2025-02-24 01:37] VITALS: BP 110/72
[2025-02-24 08:20] VITALS: BP 119/75
--- NOTE | 2025-02-24 08:28 | CM ---
Addendum entered by Soniya Murrell 02/24/25 17:25:
Mrs Ramos came in to see her son this evening. Spouse was also with her. Mother wants to take her son home tonight, stating her daughter would be coming. Mother with very animated conversation, spouse and son calm. TC to daughter Mary Jo Ramos,
[phone], she was not planning on coming until Thursday. She could possibly come tomorrow if her brother could be released to her. will update daughter.
Addendum entered by Soniya Murrell 02/24/25 16:32:
TC to Maria A from [facility], she had spoken with Mary Jo (sister) and there is no change in the prior plan. She asked her general operations manager, Neal Dubon to call us. TC from [place]- his phone number is [phone] and he explained that they are not
pursuing guardianship at this time and are under the impression the sister will be. He has not spoken with Soheila as they are separate [facility] programs. His advice was to follow what [facility] attorneys recommend. Per administration, patient
will not be permitted to d/c with parents.
Per Maria A De Jesus will be available over the weekend if needed.
Addendum entered by Soniya Murrell 02/24/25 14:02:
TC to Mary Jo Ramos, she has been updated by [facility] re the situation whith her family. Per discussion with Mary Jo her understanding is the [facility] is going to start paperwork on Thursday for Mary Jo to get guardianship of all 3 family members. Her
brother who lives in [place] will not be able to come now to assist, but will accompany her to the court hearings for guardianship. As of now, Mary Jo nor her sibling (s) will be coming to the hospital to get her brother. Per Soheila Camargo from the
[facility] is supposed to reach out to me by phone. Will text Soheila and request call.
Addendum entered by Soniya Murrell 02/24/25 11:51:
Per Administration, we may speak with Mary Jo Ramos.
Addendum entered by Soniya Murrell 02/24/25 10:56:
Spoke with Maria A from [facility]. They have not petitioned for emergency guardianship and still are not sure if they will be. [facility] is still trying to contact family.
Per Maria A she contacted Mary Jo Ramos, . Mary Jo informed her there are multiple children who are capable of stepping in for Guardianship.
Email received stating patients mother, Mrs Ramos is an inappropriate caregiver.
Addendum entered by Soniya Murrell 02/24/25 10:03:
Spoke with Soheila from, [facility]- she is only working with the [facility] in the interest of Portillo parents, not Tony. The [facility] evaluated Portillo parents and they feel they are incapacitated. But, technically they both have capacity until the court
says otherwise. They are filing for emergency guardianship of his father as he has a dx of dementia, but are still unsure if there is a need for emergency guardianship of his mother.
Per Maria A Parnell is with [facility] and any communications for Tony should be thru [facility]. Will attempt sending a text to Maria A.
Addendum entered by Soniya Murrell 02/24/25 09:35:
TC to IBAN Morgan for [facility] senior services- left . TC to [facility] [phone], transferred to children's lunchroom supervisor of Senior services- Ana left .
Again attempted Maria A full.
Original Note:
TC to patients lead case manager at [facility], Maria A Lewis ([phone]), Mailbox full.
Will try again in a little while. Will request documentation that patient cannot return to the home.
--- NOTE | 2025-02-24 13:43 | EDRN ---
Addendum entered by Sharee Howell RN 02/24/25 14:13:
Pts mother called into ER and was placed in contact with this RN regarding her sons status.
Original Note:
Spoke with pts mother via phone. Pts mother continuously yells when this RN is attempting to update her on her sons status. Pts mother states 'I'm gonna hurt somebody' this RN redirected her to lower her voice and refrain from threats and
profanity while on the phone. Pts mother is hard to redirect. Unable to speak to mother as she continues to scream profanity and threats when this RN attempts to speak, informed pts mother during her fit that she will need to call back when she is
able to speak calmly to staff and that we will not tolerate profanity or being threatened. She is welcome to call anytime and speak calmly and kindly to us when she is capable.
[2025-02-24 16:41] VITALS: BP 137/80
--- NOTE | 2025-02-24 18:58 | EDRN ---
I met with Tony and his mother, Portia Ramos, who arrived this afternoon for a visit. Portia would like to take Tony home with her. We discussed that we could not release him to her care at this time. Spoke with her at length with Lori
Reggie and Reba Murrell from case management. Portia eventually left to go home. Tony was present for this discussion and voiced very little. Spoke with Mary Jo Hogue, Tony's sister, by phone [phone].
Mary Jo understands that her mother is not competent to care for Tony after discharge from the ED. Mary Jo understands that she will assume care of Tony and remain his caregiver. She understands that her mother cannot assume care of Tony after
discharge from the ED.
Mary Jo will discuss this with her and her brother before making a final decision.
Mary Jo will work with French caser shoe parts from Adult Protective Services for a custodial plan of care. She has the contact information for Maria A Lewis from APS and Analia Hebert from AAA.
--- NOTE | 2025-02-24 19:16 | CM ---
I met with Tony and his mother, Portia Ramos, along with the CM Labor Delivery Specialist and Director of the ED. She had come with her to visit Tony and wanted to take him home. We explained that we were unable to release him to her care at this
time due to concerns of Adult Protective Services . We stated that she could visit him but could not take him with her tonight. She stated that her Daughter was coming on Thursday .After a very lengthy discussion she did finally agree to go home with
her . Tony was also present during this discussion and only said a few words.
We called Tony's Sister, Mary Jo Hogue, by phone [phone]. We explained that yesterday a psychiatrist found that they feel both her Father and her Mother lack the capacity to safely care for her Brother and that Adult Protective Services was
involved. We made her aware because of this we are unable to release her Brother in the care of her Mother or Father at this time. She stated she was coming on Thursday and she was planning to pick her Brother up and take her back to her Mother house.
She was made aware that as long as she remained with her Brother as his healthcare analyst, and did not leave him alone with her Mother or Father than she was free to do that. She said that she has two small children at home who start school next week, so
may not be able to do that.
She stated that she needs to discuss with her Brother , who lives in [place] as well as her but her current plan would be to come to the hospital on Thursday and pick her Brother up and take him back to her house in [place] . She did ask
about placement , and I explained that I did not think that her Brother would qualify for Skilled Level of Care as he is ambulatory and has no fpc needs that I could identify. I stated that he requires more personal care which is not
covered by most insurances and would most likely be private pay. I stated he may qualify for [place] ([place]) and then be able to go to a facility under [place], but it would be based on his finances. She stated at one time he had been receiving Medicaid
but that because of his monthly income and he had lost it .
Mary Jo understands that her mother lacks capacity to safely care for Tony after discharge from the ED. Mary Jo understands that if she assumes care of Tony , she will remain his healthcare analyst. She also understands that her mother cannot assume care
of Tony after discharge from the ED.
Mary Jo will work with the [facility] CM as well as Tony's welfare case worker from Adult Protective Services regarding a technician terminal and repeater plan of care. She has the contact information for Maria A CRAIN and Analia Hebert from [facility].
[2025-02-24] MEDS: ATIVAN 0.5 MG PO (21:41)
[2025-02-25 07:30] VITALS: BP 126/81
--- NOTE | 2025-02-25 07:30 | EDRN ---
this RN received the pt from previous evaporator supervisor nurse Carli CRAIN, this RN entered the pts room C2 and the pt was found walking around the room and crisis area, this RN notified the pt that this RN wanted to obtain a set of vital signs and this RN
asked the pt if he could sit on the side of the bed, the pt did so and was agreeable to this RN obtaining vital signs, VS WNL, no s/s of distress, the pts breakfast was ordered by mental health data security consultant the pt was incontinent this AM and
previous evaporator supervisor RN provided a new brief for the pt, the pt is calm, cooperative with a flat affect, per showcase trimmer Debbie the pts sister will be coming to [facility] tomorrow with her to take the pt home with her
--- NOTE | 2025-02-25 09:51 | CM ---
Addendum entered by Debbie Llanos 02/25/25 13:37:
redevelopment manager left message for patient's mother to offer support ed case manager also reached out to patient's parents community case work with [facility] on [facility] Kirsty [phone] and left a message.
Addendum entered by Debbie Llanos 02/25/25 11:57:
redevelopment manager reached out to patient's sister, Mary Jo Hogue [phone], and she stated that she will be at [facility] tomorrow at 1pm with her , per patient's daughter Mary Jo she received a call from a physician at [facility] today and was informed that he father is at [facility]. redevelopment manager reviewed with patient's sister, Mary Jo possible plan for patient and patient's sister reports she is not sure that she will be able to take patient, and wants to
review options for patient. Patient's sister is agreeable to working with [facility] emergencies services. redevelopment manager will need to follow up with [facility] to assist with plan for patient.
Original Note:
redevelopment manager continues to follow with patient, events in ED this morning noted, Sergeant Park and 2 officers will write up a report and speak with patient's mother later today again to to review with patient's mother any charges. Patient's father
has dementia and maybe unsafe, call placed to [place] police, ed case manager spoke with Officer Jorje and patient and family are well know to him and he will go to patient's father's home today do a welfare check on patient's father.
Plan; Patient's sister Mary Jo to come to the hospital tomorrow after speaking with her and brother with final plan for patient.
[2025-02-25 12:08] VITALS: BP 126/81; BMI 23.6
--- NOTE | 2025-02-25 17:59 | EDRN ---
this RN entered the pts room and provided a new brief and paper scrubs for the pt and assisted the pt with changing into new brief and paper scrubs, this RN also provided the pt with cleansing cloths for the pt to clean his face with which he was
able to do, this RN also provided a toothbrush and tooth paste and the pt was able to brush his teeth, this RN stripped the pts bed and disinfected the pts bed and placed new sheets and a new pillow case, this RN mopped the pts room floor and threw
out trash in the patients room, the patients sister Mary Jo Hogue called the community health agent and asked to get transferred to this RN, this RN answered the phone and the pts sister wanted an update on the pt which this RN gave the pts sister, the pts
sister notified this RN that she would be arriving tomorrow afternoon with her Cm Hogue and they will be taking the patient home with them to [place]. Mary Jo notified me that she spoke to Debbie from case management regarding this.
The patients sister Mary Jo notified this RN that the pts mother wanted to come to see the patient tonight, the patients sister notified this RN that the mother would be able to conduct herself in an appropriate and professional manor. This RN spoke
with the charge nurse Reba CRAIN and the express manager Rosalee Vegas and this RN notified the pts sister that it would be okay if the mother came to visit the patient if she could remain calm and not bring outside belongings into the crisis room. The
patients mother will be in the ED within the next hour.
[2025-02-25 18:00] VITALS: BP 131/85
--- NOTE | 2025-02-25 19:01 | EDRN ---
triage Gayathri called this RN and notified this RN that the pts mother has arrived to visit him, triage pivot RN escorted the pts mother to crisis waiting area due to her not wanting to visit the patient in the locked crisis area, security is sitting
with the pt and the pts mother and the pts mother has been calm and cooperative, the pts mother was told that she has until 8pm to visit her son, this information was passed onto the receiving material handler 1st shift nurse Alok CRAIN
[2025-02-25 20:00] VITALS: BP 138/88
[2025-02-26 03:14] VITALS: BP 142/90
[2025-02-26 08:00] VITALS: BP 125/65
--- NOTE | 2025-02-26 08:00 | EDRN ---
this RN received the pt from previous chief technician x ray BREANN Yao, this RN entered the pts room and the pt was sitting on the side of the bed watching TV, this RN obtained vital signs which the pt was agreeable to, VS WNL, no s/s of distress, this
RN bathed the pt with warm water and soap in the pts Crisis 2 room, dried the pt and helped the pt change into a new brief which the pts mother provided to staff last night, this RN assisted the pt into new clean paper scrubs, this RN washed the pts
face, and hair, the pts hair was combed, the pt brushed his teeth, deodorant was applied, new socks were placed, this RN changed the pts sheets and pillow case, this RN mopped the pts floor in his room and the bathroom floor, the pts breakfast was
ordered, the pt appears to be comfortable and is now sitting on the side of the bed watching Spongebob, per case management the pts sister should be arriving today to take the pt home with her, will continue to monitor the pt closely
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
--- NOTE | 2025-02-26 19:00 | EDRN ---
Report received, patient is sleeping at this time, 1:1 remains
[2025-02-26 21:47] VITALS: BP 100/79
--- NOTE | 2025-02-26 21:48 | EDRN ---
Patient was yasmin to eat some of his dinner, had some [employer] cereal, some chicken and mashed potatoes & some peas. He also had a cup of apple juice.
--- NOTE | 2025-02-27 00:14 | EDRN ---
Patient pacing in and out of bathroom, tried to get him to get some sleep however patient still up and down, safe environment maintained.
--- NOTE | 2025-02-27 01:56 | EDRN ---
Patient is sleeping at this time, safe environment maintained, will continue to monitor
--- NOTE | 2025-02-27 06:24 | EDRN ---
patient awake and pacing around the room, safe environment maintained, will continue to monitor
[2025-02-27 11:13] VITALS: BP 117/79
[2025-02-28 01:00] VITALS: BP 111/73
--- NOTE | 2025-02-28 11:03 | CM ---
Call received from Mary Jo Wick, patient's sister, at [phone]. She stated she did reach out to Keysha Irma yesterday as well has been researching and calling some Memory Care facilities. She stated there is a Memory Care Facility near where
her Mother lives that may be a possible temporary solution . She did not remember the name, however stated it was reasonably prices as compared to other facilities . Per Mary Jo the cost of a single room is $3800 per month, where if it was a room
with a roommate it would be $2400. She also stated that eventually there was the possibility to have the Son and the Father in the same room. She stated she has a virtual tour of the facility later this morning, and if all goes well may be able to
facilitate her Brother moving as a possible temporary solution . Her Mother is however not returning her calls , so she has not been able to communicate this information to her. She asked that we communicate to her Mother that there is a facility
close to where her Mother lives that is reasonably priced and could be a temporary solution, until the guardianship hearings of her parents take place. Mary Jo stated that Keysha Solis was going to stop by the hospital this morning . I made Mary Jo
aware that I would reach out to Keysha Irma to find out the name of the facility .
--- NOTE | 2025-02-28 11:19 | CM ---
Call placed to Keysha Solis, [facility], along with EDCM. Per Keysha the Memory Care Facility that the Sister was referring to is [facility] in [place], [place].. Keysha had confirmed that she had spoken to Mary Jo and that she has a virtual tour
at 11 am. She stated that when the Mom comes to visit if we would like her to come speak to the Mom she can be here in 15 minutes. She also offered that Mom can also take a tour of the Facility, which Mary Jo also suggested if the Mom is open to
that.
VM left for Soheila Anup [phone], Fountain Brush Assembler at [facility] , asking her to return my call. Call also placed to main phone number to [facility] on [facility] at [phone]. Asked to speak to Road Crew Member there,
was put through to the vm of josé Kerns (?spg). I left a vm asking her to return my call as soon as she is able regarding the [facility]'s.
--- NOTE | 2025-02-28 15:41 | CM ---
Addendum entered by Gabrielle Glaser 02/28/25 17:41:
Keysha Solis came to the ED and met with pt's mother Portia. [facility] was discussed and she is agreeable to meeting with [facility] liaison tomorrow, she requested 2pm. Keysha will contact the liaison to set up the meeting. Portia mentioned
[facility] as she has a friend there, per Keysha that is an independent living facility but she will look into it.
Portia gave me the number of her professional driver Gregory Dumont [phone], she told me he wants to speak to the doctor, I explained that Tony has been discharged from the ED. She did not want to call him back at this time.
Original Note:
CM met with pt's mother Portia bedside in ED along with CM Bar And Filler Assembler and ED Director. We attempted to discuss placement for Tony but she kept telling us he needs to be home by 6am tomorrow morning for the miracle that will make him better so he
can get a job, get and have a family. Portia explained that she and Tony are chosen ones and God will perform a miracle for Tony. Portia showed us papers she has written up with all the prayers she needs to say for him over the
next 40 days so the miracle will work. She did not want us to look at them, she wants to show them to her professional driver first. She said her professional driver was supposed to meet her in the ED but has not gotten here yet. When asked what his name is she could not
remember, just kept telling us he is here in [place].
We talked to her about [facility] in [place], told her the prices that had been quoted to her daughter Mary Jo. She was initially very resistant but then agreed to talk more about it. She agreed to have someone come and tell her more about the facility.
I spoke to Keysha from [facility] and she is able to be here by 5pm to speak with Portia. Portia is agreeable and assured me she will not leave before Keysha gets here.
[2025-02-28 15:58] VITALS: BP 113/75
--- NOTE | 2025-02-28 18:07 | CM ---
Call placed to Neal Dubon, Quality Inspector for [facility], ([phone]) who is a contractor that provides the Adult Protective Services for this area. I had asked him for assistance in working with us to facilitate placement for
Tony. I explained that we had a possible facility for Tony but are having difficulty in obtaining some of the needed information for him to be placed. I had made him aware that we had also reached out to [facility] but have
not received a call back from his Docketing Specialist there, as well as not hearing back from her Aircraft Mechanic Armament. I made him aware that Tony was transferred to our ED under their direction and has no medical reason to remain here. He stated that he would
reach out to his counterparts at [facility] as well as speak to his foster care case manager to see what help they can offer. I provided Neal my direct phone number for him to call me back.
[2025-03-01 00:03] VITALS: BP 98/65
--- NOTE | 2025-03-01 05:33 | EDRN ---
patient awake and standing in bathroom, no complaints
[2025-03-01 10:59] VITALS: BP 107/64
--- NOTE | 2025-03-01 16:21 | CM ---
[facility]/Stefan [phone] completed onsite visit this morning for evaluation
Call with sister/Mary Jo Marroquin ([phone])
She noted per call with Akira MULTANI/Teagan this AM, guardianship paperwork has been submitted for mother/father
Father at [facility] with plans for STR at [facility]
She has outreached to elder law district attorney/special needs, Kvng Norman, and she may consider obtaining his services
She continues to work with Keysha Solis/[facility]
Bedside visit with pt and mother/Portia today
Mother would like to take pt to [facility] so [facility] Glenn can anoint him and remove his demons that are causing his dysfunction
CM later advised that [facility] has declined admission
CM encouraged mother to continue to work with [facility] for placement
--- NOTE | 2025-03-01 17:47 | CM ---
Call placed to Keysha Solis, [facility]. Per Keysha she did leave a VM on Portia's phone regarding [facility] declining admission for her Son, per Keysha she did make referrals to some other Assisted Living/Memory Care facilities in the [place] [place] near where they live. She stated she would keep us updated as to both of these facilities and if they would like to send a nurse out to assess Tony. Update to CM.
[2025-03-01 18:10] VITALS: BP 136/70
[2025-03-01 19:26] VITALS: BMI 23.6
[2025-03-02 09:00] VITALS: BP 115/73
--- NOTE | 2025-03-02 10:46 | CM ---
Addendum entered by Soniya Murrell 03/02/25 16:28:
TC to Mary Jo to see if she made any progress with retaining an attorney law clerk for guardianship of her brother. Per Mary Jo, she has left messages for multiple attorneys, some do not do guardianships. She is anxious and frustrated as she is getting calls
from 2 hospitals, [facility] and [facility] about her family. I explained again how we need to expedite the process and she she became more frustrated stating the [facility] has started this for my parents to make her guardian why couldn't they do the
same for her brother. I offered her the name of an attorney law clerk we frequently use for guardianships and let her know she is under no obligation to call him. I did ask her if she does retain an attorney law clerk to please call and let us know or have the attorney law clerk
contact us. I also explained that if this is not accomplished as soon as possible the hospital may need to take measures to initiate guardianship, to which she said I wish they would. Mary Jo then stated she does not have to means to finance this
until her parents guardianship is completed. She does not understand how the [facility] or [facility] could remove her brother from the home and expect her to get all this accomplished from another state in such a short period of time.
Original Note:
TC to Mary Jo ([facility]), patients sister, . Mary Jo is still in the process of obtaining an attorney law clerk, she has multiple calls out and the attorney law clerk she left a message for today practices in 4 states. Per Mary Jo she is looking for guardianship
of her parents and brother. TO explained the urgency in trying to get guardianship and find a suitable living situation for her brother. She stated her mother is an obstacle to the situation and she has no access to any of the funds, but with her
mother intwined in everything her hands are tied. Her mother has supposedly secured an attorney law clerk and Mary Jo feels it is to get guardianship of her brother. Mary Jo has young children and today was their first day back to school. She [place] in [place] and
[place] a [place] director customer so moving here to help is not an option, if she could do it she would, but they cant at this time. Her Brother lives in [place] and for him to come here would be only as a last resort. She seems very overwhelmed and is
doing what she can, she asked about her brothers wellbeing and stated she wants to do what is best for all of them. Per Mary Jo her father remains at [facility], he was not able to go to [facility] yesterday because his Medicare days
were exhausted. She suggested [facility] for him as her mother likes it there. Mary Jo will continue to work with [facility] and will continue to look for an attorney law clerk to get guardianship. Her mother is currently not speaking with her, but
she said she does not fault her as her mother is mentally ill. She was not sure where in the process JASSI was with guardianship for her parents, but the papers have been filed.
[2025-03-02 11:42] VITALS: BP 112/69
[2025-03-02 15:00] VITALS: BP 115/74
[2025-03-02 19:00] VITALS: BP 127/71; BMI 23.5
[2025-03-02 22:39] VITALS: BP 105/75
--- NOTE | 2025-03-03 10:37 | CM ---
Call received from Keysha Solis, [facility], that a nurse (Erna or June) from [facility] will be coming out to meet with Tony today at 11am. She stated the Sister has already spoke to them and has taken a virtual tour.Update to
EDCM to make her aware.
--- NOTE | 2025-03-03 10:42 | CM ---
Returned call to Soheila Hebert ([phone])from [facility] , who is the Social Media Editor for MrRufus and Mrs. Ramos. She stated [facility] are actively pursuing guardianships for MrRufus and Mrs. Ramos and the
necessary court documents have been filed . She is stating that she is waiting to speak with the braille transcriber.
--- NOTE | 2025-03-03 16:16 | CM ---
Addendum entered by Lori Paredes RN 03/03/25 16:48:
Spoke to Wendy Chavis, the [facility], she stated she had spoken to Mrs Ramos as well as Tony's sister , Mary Jo. She stated that they would like to send someone out from their facility on Thursday and said she would outreach to Rachel Isbell with a
time where she could be there so they can speak to her as well. She called back shortly later to request we send them clinical prior to the visit on Thursday. Update to asking her to fax the clinical information that we have on this patient to
Wendy.
Addendum entered by Lori Paredes RN 03/03/25 16:38:
Spoke to Portia Ramos in patient's room . Made her aware we are working on finding placement for Tony, at the facilities she had requested. She stated there was another Facility called [facility] in [place] that she is also interested in .
She gave me the contact she had been speaking to there , Wendy Chavis ([phone] or [phone]). I stated we would outreach to them .
Original Note:
Call placed to Patient's Sister, Mary Jo. I called her to make her aware that we are here if she needed help navigating the Guardianship Process. She stated that the form that Maria A from Adult Protective Services had e-mailed her regarding emergency
guardianship, she was unable to open. She stated she was calling her to make her aware that she was unable to open the document and to resend it to her in another format so she can open it. She also stated that she has calls into three different
health care attorney offices and is waiting for them to call back. She also stated she realizes that Tony can not stay in the hospital, and she is hoping to get Tony placed, while they work on the Guardianship for all three. She stated she has spoken to her
Mother and her Mother is in agreement with placing Tony and they have some facilities that they are interested in. She stated [facility] in [place] was due to come out today to see Tony . Also her Mother had brought up [facility]. I
stated most likely he would not qualify for skilled and would most likely be private pay. She stated her Mother is aware and is amenable to that. I stated we would make a referral to that facility. I did state that sometimes the hospital does pursue
guardianship when the family is unable or can not. Mary Jo confirmed that she was pursuing Emergency Guardianship. I stated to call me should she have any questions or need assistance.
--- NOTE | 2025-03-03 16:27 | CM ---
Addendum entered by Gabrielle Glaser 03/03/25 17:12:
Referral sent to [facility] via [facility] per family's request.
Addendum entered by Gabrielle Glaser 03/03/25 17:01:
I spoke to Wendy from [facility]. Clinical faxed to [phone].
Original Note:
Erna from [facility] came to evaluate pt. I received a call from Car Durbin from [facility] requesting clinicals. He stated they could take Tony on Thursday if approved. His number is [phone]. Clinicals faxed to [phone].
My compensation and benefits manager informed me pt's mother had reached out to [facility] ([phone]) to discuss possible admission there. spoke to Wedny Corrigan at [facility] ([phone]). I called [facility] requesting fax number so I could send clinicals to
them. Awaiting a call back.
Met with pt's mother along with my compensation and benefits manager and ED Director. We again explained why she could not take Tony home today.
--- NOTE | 2025-03-03 17:19 | CM ---
Addendum entered by Lori Paredes RN 03/03/25 17:52:
Sanjiv called back shortly later to state there may be a less costly way for Mary Jo to make decisions on Tony's behalf by becoming his Power of Life Insurance Sales Agent. I stated that I was not sure if Tony had the capacity to understand what a Power of
Life Insurance Sales Agent is in order to sign the form. I asked that Maria A call Mary Jo to discuss.
Original Note:
Received return call from Sanjiv from Adult [employer] Services ([phone]). He stated that he was returning the vm I had left for Neal. I explained the many challenges we have been having with finding placement for Tony. I stated Maria A did
e-mail Mary Oj a copy of the Emergency Guardianship form , along with instructions one how to file for Guardianship however that Mary Jo was unable to open the form in the format that it was sent. He stated that he would have Maria A reach out to Mary Jo
and resend the information in a different format so that she could open it. I also requested that Maria A offer help to [place] and guide her through the process. I made him aware that we have been attempting to place Tony and currently stated other
than an e-mail between [facility] on Aging and Adult Protective Services , we do not have anything in writing to provide a facility, should we find one, that Tony can not be released to the care of his Mother. Sanjiv stated that should
we find a facility he will reach out to them to make them aware of the situation and that Tony should not be released in his Mother's care.
[2025-03-04 10:20] VITALS: BP 129/78
--- NOTE | 2025-03-04 19:00 | EDRN ---
report received, patient is eating dinner with his mom at bedside, both enjoying meal peacefully
[2025-03-04 20:47] VITALS: BP 105/67
--- NOTE | 2025-03-04 20:48 | EDRN ---
Patient's mom came out of the room stating her 'son is not well and he needs a CT scan and he is warm and not well' patient is sleeping at this time, i did recheck patient's vital signs including his temperature, all are within normal limits,
patient has no complaints at this time.
--- NOTE | 2025-03-04 21:09 | EDRN ---
Mother of patient started screaming at myself and other nurses, she was informed it was time to leave and she can not speak to the nursing staff this way, patient is screaming 'fuck you, get the fuck out of here, my son is sick and get out bitch'
patient was informed she can not speak to staff that way or yell, security was called and at bedside, mom of patient is continuing to yell and curse and waving her finger in nurses faces. Police were called and are in speaking with the mom now.
--- NOTE | 2025-03-04 21:43 | EDRN ---
a wheelchair was provided for police and they escorted the mother out of the department, after she left, went in and checked on patient who appears to be trying to sleep, turned down lights for patient and he rolled over and closed his eyes, will
continue to monitor
--- NOTE | 2025-03-04 23:44 | EDRN ---
Patient is walking around his room, suggested to him to try to get some sleep, patient continues to walk around the room and look through door into the hallway.
--- NOTE | 2025-03-05 01:34 | EDRN ---
Patient is sleeping at this time.
--- NOTE | 2025-03-05 10:01 | CM ---
Call placed to Soheila Hebert ([phone]) [facility] on [facility] Retail Project Merchandiser for Portia Ramos, left VM. Her VM directed me to the Emergency Hotline for [facility] . Call placed to (Emergency
Hotline for [facility]), spoke to Lavern Wilson, made her aware of the event last night, as well as the two prior events of threatening and hitting staff. I requested they make a well check for her as I feel she may be decompensating
which is causing her behaviors to escalate, since her Son is here and her is currently at [place]. I stated I was concerned for her safety . I also made her that due to our concern for the safety of our staff that we were going to be
calling her this morning to make her aware that based on her continued behaviors of threatening staff we are going to be restricting her visits of her Son, Tony .
Received return call , while on phone with Emergency Hotline, from Soheila Hebert. Spoke to Soheila and updated her on last night's event of threatening staff and needing for involvement by the police. I stated that this was the third such event
since her Son has been here. I made her aware I had just gotten off the phone with the Emergency Hotline for [facility] and made my concern for Portia's welfare and asked them to make a well check. Soheila stated they most
likely will send 911 out, who have been there multiple times in the past per Soheila. Soheila stated she would update the assistant county attorney involved in the Guardianship of these events to make him aware of the urgency of the situation. I did make Soheila
aware that based on Portia Ramos's continued behaviors of threatening our staff we were going to be restricting her visiting her Son, which we would notify her of this morning. Update to TO.
--- NOTE | 2025-03-05 10:46 | CM ---
Call received from Keysha Solis, [facility], stating that unfortunately that [facility] declined Tony, stating they felt he was 'not appropriate for their community'. She did however state that the Rosette from [place] is coming out tomorrow
to meet with Tony and evaluate him for potential placement in their facility. Update to CM.
--- NOTE | 2025-03-05 11:07 | CM ---
Call placed to Mary Jo ([phone]), Tony's Sister and Portia's Daughter making her aware of that last evening there was another escalation of her Mothers's behavior of threatening the staff and that the Police needed to be called. I stated
due to her Mothers continued behavior of threatening our staff and in the first two episodes of hitting our staff we were going to be calling her Mother this morning to restrict her visitation. I did make Mary Jo aware that I also notified Soheila
Anup , her Mothers Golf Club Head Inspector from [facility] , regarding the events of last evening and that we would be restricting Portia's visits with Tony her in order to protect our staff. I did make Mary Jo aware that Soheila had said
she was going to notify their counter hand of what had occurred and the urgency of the situation. I did state that I had also [facility] and asked for them to perform a well check on her Mom, due to her
escalating behaviors and concern for her safety. She stated she has an counter hand that she will call tomorrow for assistance with Tony's guardianship, and other matters. I asked her to make him aware of the urgency of the situation as her Mothers
behaviors is adversely affecting the our ability to place Tony in a Memory Care or Intermediate Facility . She stated she understood, and was planning on coming to visit her Father, who is at [place] as well as Tony sometime this afternoon.
--- NOTE | 2025-03-05 12:00 | EDRN ---
Addendum entered by Rosalee Smith RN 03/05/25 15:03:
Along with Lori Paredes, Director of Case Management, we called Mrs. Ramos today by phone and ended the call at noon today. The note below describes that phone call. I informed Mrs. Ramos that I would call her tomorrow morning before noon to
update her on our plan. She is not to visit Tony until she hears further instructions. ED staff and security aware of the plan for today and given direction that Mrs. Ramos is restricted from visiting Tony today. Tony sister, Mary Jo, does
intend to visit today.
Original Note:
We informed her that we have been concerned about her recent behavior and that we have a responsibility to keep our staff and other ER patients safe. We informed her that while she was visiting peacefully earlier in the week, her visits have become
much later, longer, and more disruptive. I expressed that her visits are becoming counterproductive and that we cannot tolerate her cursing and striking at staff. We encouraged her to stay home today and rest. I reassured her that Tony is being
well taken care of here and that he was out walking while we were on the call. We told her we would not allow her to visit Tony today and that we would call her tomorrow by noon to make a plan about future visits. She became a little angry at
times stating that some staff was not kind and that all she wanted to do was say prayers for 15 minutes after Tony fell asleep at night. I told her she could not come in tonight and she could say her prayers from home. She informed us that she
understands this directive.
[2025-03-05 19:47] VITALS: BP 105/74
--- NOTE | 2025-03-05 21:36 | EDRN ---
pts brief replaced, bed made and pt redirected to bed. Pt brushed his teeth. Some food eaten off dinner tray as well.
--- NOTE | 2025-03-06 08:31 | EDRN ---
Pt awake and ambulating around room. Brief changed and marisa yasmin given to patient.
--- NOTE | 2025-03-06 14:30 | EDRN ---
This mortgage underwriter spoke with Mrs. Portia Ramos, Tony's mother, outside of the ED on 03/06/25 at 1330. Mrs. Ramos was informed that her recent behaviors from 03/04/25 (cursing at staff, striking staff, not following directions from staff) violated our
code of conduct. Mrs. Ramos was informed that she would not be permitted to visit her son at this time. I had a long conversation with Mrs. Ramos with Vicente Ghosh and Rohit Briseno from [facility]. Mrs. Ramos left a few food items and articles of
clothing for Tony and I escorted Mrs. Ramos to her car. I informed her that we would discuss her visitation with hospital administration and I would provide her with an update by phone on 03/07/25.
--- NOTE | 2025-03-06 15:54 | CM ---
Addendum entered by Portia Mojica 03/06/25 16:09:
Denied
[facility] [employer] [facility], no availability [phone] (p)
Original Note:
Calls with [facility]/Keysha Solis [phone] to coordinate dc planning
Multiple outreach to memory care facilities
CM met with two memeory care facilities today bedside, [facility] and [facility]
Denied
[facility]- psychosis
[place]- age
[facility]- age
[facility]- age
[facility]- age
[facility]- age
[place]- no secure setting
[place] -age
[facility]- full, lengthy W/L
Pending
[facility] (onsite visit completed today)
[facility] (onsite to be completed later today)
[facility] (onsite visit tomorrow at 10:30am)
[facility] (onsite visit tomorrow at 8:45am)
[facility] clinicals faxed and pending [phone]
[facility], clinicals faxed and pending [phone]
[facility], clinicals faxed and pending [phone]
Dami[facility] [phone], unable to leave VM
[facility] [phone], VM left
[facility] [phone]- VM left
Accepted
[facility] [phone] (p), onsite visit completed today, clinically accepted with immediate availability pending willing payor source
Level III care $8095 plus $3500 community fee
--- NOTE | 2025-03-06 18:23 | CM ---
Call placed to Sister, Mary Jo. I updated her on Administrations decision to not allow her Mother to Visit her Brother until further notice, due to 3 separate events of her Mother 's behavior escalating which included yelling, hitting and using
profanity. Mary Jo understood the need for us to protect our staff. I also made Mary Jo aware that most likely tomorrow we would be moving Tony upstairs to one of the medical floors and making him confidential . I explained what being in a
confidential status would mean, and although her Mother is not allowed to visit , that she and her would be able to . I did state our CM has been working closely with Keysha Solis , and we have had 2 -3 visits from Memory Care facilities
today and another 2 coming out tomorrow. One that came out today, was [facility] and that they did express interest. I stated that Keysha Solis would be calling her to explain the costs involved. She said she was aware the [facility] has one
patient there that is close her Brothers age and a facility , [facility], that is coming at 8:45 am tomorrow to evaluate him. She is very interested in either of these facilities . She said her Mother has agreed to pay for the cost of these facilities ,
but hopefully she will not still be cooperative when it comes time to write the monthly checks.
I did state some of the facilities were reticent about accepting him until the guardianship was completed. I asked if she met with the assistant county attorney today. She stated had and had asked her if her Brother had a POA , in which case if her name is on the
POA , along with her Mother's, since her Mother has been declared to lack capacity he stated that that would enable her to make decisions on her Brothers behalf. I stated that we do not have a POA for her Brother scanned into our system. She stated
she has asked her Brother in [place] to call her Mother to see if a POA for her Brother exists. Per her assistant county attorney if this is the case this would avoid the cost of a guardianship. I did make her aware that he can not stay here , which she was aware,
and she is also aware this is not the best place for Tony to be. She stated if there is no POA, she is planning on filing for emergency guardianship. I stated the hospital is planning on filing for the guardianship tomorrow afternoon if she has
not done so by then. She agreed to call me tomorrow to update me regarding the status of the POA, as well as if there is no POA if she filed for guardianship. I also said we were trying to expedite the process so that her Mother would not be charged
for the continued hospital stay at $3,000 a day plus ancillary services. She asked if the Hospital did file for guardianship would she still be allowed to be involved in Tony's care. I did make her aware most often if there is a willing family
member willing to serve as guardian then the [facility] [employer]over that we use usually prefers that. She agreed she would call me tomorrow.
[2025-03-07 06:35] VITALS: BP 118/77
--- NOTE | 2025-03-07 10:21 | CM ---
Met with Kailyn, medical technologist hematology from [facility]. Per Kailyn, they can accept Tony and have an available bed. She will email me to DME form, Rosalee will ask one of the ED Physicians to complete.
--- NOTE | 2025-03-07 14:01 | HPS.HSE ---
Family Physician
-
Family Physician: * NONE
Chief Complaint
-
placement/guardianship
History of Present Illness
54-year-old male past medical history of TBI, hyperlipidemia, prior UTI presenting for social service referral. Area of aging is performing a visit based on recent hospital stay at which patient left AMA per EMS. Area of aging was involved since
there is an investigation for guardianship for this patient. Patient's father has dementia and mother has been caring for both of them however they are questioning the competency of the mother at this time due to yelling, hitting and profanity.
Investigation is ongoing. Patient denies any complaints.
Medical History
Past Medical History
Past Medical History: Reports Other ( TBI, hyperlipidemia, prior UTI)
Past Surgical History: Reports None
Social History
Tobacco: Non-smoker
Alcohol: None
Drug: None
Family History
Family History: Not pertinent
Allergies / Home Medications
Allergies reflects when Allergies were last updated in [facility].
Home Medications with original date entered in [facility]
Allergy/Medication List:
Allergies
Allergy/AdvReac Type Severity Reaction Status Date / Time
No Known Allergies Allergy Verified 03/02/25 10:59
Home Medications
lorazepam 0.5 mg tablet 0.5 mg PO DAILYPRN PRN agitation 02/23/25
Review of Systems
-
History Source: Patient
A 12 point ROS was completed and negative except as noted: Yes
Constitutional: Reports No Symptoms
EENT: Reports No Symptoms
Respiratory: Reports No Symptoms
Cardiac: Reports No Symptoms
Abdomen/GI: Reports No Symptoms
: Reports No Symptoms
Musculoskeletal: Reports No Symptoms
Skin: Reports No Symptoms
Neurological: Reports No Symptoms
Endocrine: Reports No Symptoms
Hematologic/Lymphatic: Reports No Symptoms
Psych: Reports No Symptoms
Physical Exam
Vital Signs
Vital Signs
Temp Pulse Resp BP Pulse Ox
98.5 F 62 16 118/77 99
03/04/25 20:47 03/07/25 06:35 03/07/25 06:35 03/07/25 06:35 03/07/25 06:35
Physical Exam
General: Well Developed, Well Nourished and No Apparent Distress
HEENT: NormoCephalic, Moist mucous membranes and Atraumatic
Respiratory: Clear
Cardiac: S1/S2 and Regular Rhythm; No Murmur or Rub
GI: Soft, Non Tender, Non Distended and Normal Bowel Sounds; No Organomegaly
Rectal: Deferred by Provider
Musculoskeletal: No Clubbing, No Cyanosis and No Edema
Skin: No Rash
Neuro: Nonfocal/grossly intact
Data Reviewed
-
Lab Data: Labs Reviewed by me
Old Records: Reviewed
Impression/Plan
-
IMPRESSION:
PLAN:
# Patient needing placement/guardianship
- Admit to intermediate care, observation with boarder status with regular diet and regular activity with full ambulatory privileges to walk outside with supervision
- Patient has been in the emergency room since 02/23 to arrange placement and guardianship
- No active medical issues
History of TBI
- Continue Ativan as needed for agitation
Hyperlipidemia
Prior UTI
Full code
DVT prophylaxis�none
Regular diet
--- NOTE | 2025-03-07 14:52 | CM ---
Addendum entered by Gabrielle Glaser 03/07/25 16:15:
Received a call from [facility]iaison Kailyn Ferrari confirming receipt of DME. She told me she spoke to Pt's sister Mary Jo and she is agreeable to [facility] and is completing application. Pt will need transport set up. I sent a message to Dr Hernandez
requesting Ativan script be sent to [facility].
Original Note:
Liaisons from [facility] and [facility] evaluated Tony today. Both facilities have an available bed and are willing to accept Tony.
[facility] reps said they would also be able to take Tony's father. Made them aware he is not here, he is at [place].
I attempted to get records from [facility] documenting his neurology visit there, I spoke to Afshan who said she would fax records but records never received.
Documentation of Medical Evaluation form completed and signed by Dr Hernandez. Faxed to [facility] .
I spoke to pt's sister Mary Jo, she was filling out application for [facility]. Liaisons from [facility] were going to reach out to her to discuss their facility.
[2025-03-07 15:30] VITALS: BP 120/78
--- NOTE | 2025-03-07 16:29 | EDRN ---
This physician underwriter walked outside with Tony today and then escorted him to his new room in 2137. Tony oriented to the room and care and patient belongings were handed over to 2N staff (sweatpants, shirt, disposable underwear, pair of sneakers)
Encouraged staff to remove sneakers and offer slipper while in the room to discourage patient roaming.
Pt made confidential in the EHR.
I called Portia Ramos and provided her with an update that Tony is doing well - getting exercise and eating well. I informed her that we are working with case management to find placement. She informed me that she was been speaking with Mary Jo,
her daughter, about possible facilities.
I also informed Portia that I, with hospital administrators, still do not want her to visit Tony. She has requested daily updates from me. I advised that she remain in contact with Mary Jo for updates.
[2025-03-07 17:00] VITALS: BP 128/83
--- NOTE | 2025-03-07 17:30 | PTCARENOTE ---
Pt escorted by ED staff to 2137. Pt oriented to the room and care and patient belongings at bedside (sweatpants, shirt, disposable underwear, pair of sneakers). Pt sneakers removed and nonskid socks provided while in the room to discourage patient
roaming off floor. PCT at bedside to help acclimate pt to room. VSS. Pt offers no complaints at this time.
[2025-03-07 19:46] VITALS: BP 137/77
--- NOTE | 2025-03-07 20:00 | PTCARENOTE ---
resumed care of pt wondering the hallways, pt not staying in room, pt wondering into other patients rooms. Pt needing frequent re-direction in attempt to keep pt in room or from leaving unit. Pt unable to abide parameters in place. 1:[address] to ensure pt safety and prevent elopement/ wondering off unit. Pt flat affect, minimal verbal response. Vital signs stable. Will continue to monitor.
[2025-03-08] MEDS: VALIUM INJECTION 5 MG IM (04:29)
--- NOTE | 2025-03-08 04:59 | W.PN.UPDATE ---
Addendum entered and electronically signed by BORIS Carrion 03/08/25 06:15:
correction: prior to incident Tony was not a 1:1.
Original Note:
Update Note
Progress Note Update
Approx 0430 code purple was called on Tony
Per tech doing his 1:1, Tony wanted to take a walk and tech assisted in walk around unit. Then Tony walked into another pt room and started screaming at them. Staff and security met pt in hallway. We were able to get pt back into his room but he
was extremely agitated and continued screaming. Attempting to close door. He threw ice cup at staff and security. Attempts were made to get him to take ativan po but he would not. Attempts were made to deescalate situation which failed. Bandar
agitation worsened and needed to be forced into bed and then placed in 4 point restraints. Tony attempted to kick and punch staff. Valium im ordered and given. For safety reasons 1:1 ordered.
--- NOTE | 2025-03-08 05:00 | PTCARENOTE ---
Pt sleeping with 1:1 at bedside. Pt awoke, pacing room, then came out to ambulate in hallway. Pt walking aggressively, not listening to staff. Pt walked into another pts room. When attempting to remove pt from room, pt became aggressive towards
staff, yelling. Dalia valdes called. Pt finally walked out of pts room, and continued to ambulate in hallway refusing to go into own room. Security at bedside assisting with pt. Nursing casting and pasting supervisor at bedside. All attempts made to settle pt
unsuccessful. With security assistance, pt placed into bed in 4 pt soft limb restraints. IM Valium administered as ordered. 1:1 observation maintained. Will continue to monitor.
[2025-03-08 08:37] VITALS: BP 122/81
--- NOTE | 2025-03-08 09:21 | CM ---
I spoke to Neal from [facility], they are able to accept Tony and the cost would be $6988.00 a month, this includes a private room and care throughout the day. I asked him to reach out to pt's sister Mary Jo to review costs and facility with
her.
--- NOTE | 2025-03-08 12:25 | W.PN.HOSP.TC ---
Today's Communication/Plan
-
Disposition efforts
Benzodiazepine p.o. as needed
Assessment / Plan
Assessment / Plan
Physical Exam
General: Well Developed, Well Nourished and No Apparent Distress
HEENT: NormoCephalic, Moist mucous membranes and Atraumatic
Respiratory: Clear
Cardiac: S1/S2 and Regular Rhythm; No Murmur or Rub
GI: Soft, Non Tender, Non Distended and Normal Bowel Sounds; No Organomegaly
Rectal: Deferred by Provider
Musculoskeletal: No Clubbing, No Cyanosis and No Edema
Skin: No Rash
Neuro: Nonfocal/grossly intact
# Patient needing placement/guardianship
- Admit to snf care, observation with boarder status with regular diet and regular activity with full ambulatory privileges to walk outside with supervision
- Patient has been in the emergency room since 02/23 to arrange placement and guardianship
- No active medical issues
- PO lorazepam prn
History of TBI
- Continue Ativan as needed for agitation
Hyperlipidemia
Prior UTI
Full code
DVT prophylaxis�none
Regular diet
More than 30 minutes spent in discharge including
Final examination of the patient
Summarizing hospital stay
Instructions for continuing care to all relevant caregivers
Preparation of discharge records, prescriptions, and referral forms
Total time spent (in minutes): 36
Anticipated Discharge: Today
Subjective/Interval History
-
Date of Service: March 08, 2025
received valium for agitation this morning; not agitated this am durng rounds.
Objective Data
-
Vital Signs:
Vital Signs
Temp Pulse Resp BP Pulse Ox
98.2 F 68 16 122/81 100
03/08/25 08:37 03/08/25 08:37 03/07/25 19:46 03/08/25 08:37 03/08/25 08:37
I&O
03/07/25 03/08/25 03/09/25
06:59 06:59 06:59
Intake Total 1260 / 1260
Balance 1260 / 1260
Review of Systems
-
History Source: Patient
All other systems: Not reviewed unless documented
Data Reviewed
-
Labs: Labs Reviewed by me
--- NOTE | 2025-03-08 13:39 | CM ---
Received return call from patient's sister, Mary Jo. Along with the shipping clerk/admin, I made her aware that her brother was moved last evening to 2137, which is a larger room, with a window and small couch. I did make her aware that the transition
to the new room did not go well, and that he had escalating behavior including walking into another patients room as well as increased agitation, and striking out at staff to the point of needing IV Valium and needed to be restrained in order to
protect him from harming himself and harming staff. We made her aware that currently he no longer needed restraints and currently was calm and back to his baseline. Mary Jo made us aware that she has selected [facility] in [place],
[place]. She stated her contact there is Kailyn Ferrari at [phone]. She stated that her Mother was going there today to pay the needed fees, and once that takes place , Tony would most likely could be transferred either later today or tomorrow
morning.
--- NOTE | 2025-03-08 14:12 | CM ---
Addendum entered by Lori Paredes RN 03/08/25 14:22:
Received return call from Kailyn that his Mother, Portia, did make the needed payment and they were ready to accept him, once we send the needed information. She did request that he come tomorrow morning to decrease the chance that he may have
another difficult transition if he arrives late in the day, early evening and that would insure they would have the need PRN medication. I did state our physician was not able to write the order for the Ativan Gel as it is not on our formulary, but
could write an order for oral suspension Ativan, their stockroom supervisor stated that would be acceptable. Update to Tile Helper and CM. They asked that he arrive 10 am tomorrow morning. Update to stockroom supervisor. I also told her someone for
Adult Protective services would be calling her to explain the Social Issues surrounding the Mother . She stated Maria A, his Landscape Architecture Professor, had already called her and they are aware of the details and that they can not release him into the care of his
Mother. She also stated that they were working on accepting the Patient's Father to their facility as well.
Original Note:
Call placed to Kailyn Ferrari /[facility] and Amber(?sp) stockroom supervisor, Along with stockroom supervisor ,we made her aware that Tony was moved last evening to a larger room, with a window and small couch. We did make her aware
that the transition to the new room did not go well, and that he had escalating behavior including walking into another patients room as well as increased agitation, and striking out at staff to the point of needing IV Valium and needed to be
restrained in order to protect him from harming himself and harming staff. We made her aware that currently he no longer needed restraints and currently was calm and back to his baseline. She stated that will not prevent them from taking him.
Because of the behavior last night, in reaction to a change in the environment, they would request a 7 day PRN order to be sent to their Pharmacy ([facility] [phone]) for Ativan Gel, just in case during the transition to their facility he
begins to get agitated . We stated we would aks the Physician for the script. She also asked that we update the DME form to include his height, weight, pulse, BP and temp. Update to CM regarding requested information.
--- NOTE | 2025-03-08 15:37 | CM ---
Addendum entered by Soniya Murrell 03/08/25 16:28:
TCB from Pharmacist, Nilton, script received.
Left Message for Kailyn to let her know script was sent and updated DME sent, await TCB.
Original Note:
Script faxed to [facility] fax # [phone], await call back confirmation..
DME form faxed to Kailyn at [employer] fax#[phone]
Ambulance transport forms on chart .
[2025-03-08 19:32] VITALS: BP 121/81
[2025-03-08 23:00] VITALS: BP 105/57
[2025-03-09 08:18] VITALS: BP 111/72
--- NOTE | 2025-03-09 10:06 | PTCARENOTE ---
Pt transported by acute care medic, 1:1 sitter traveled with pt. No report # in notes to call, reached out to CM in case there is a number to call.
--- NOTE | 2025-03-09 11:57 | W.PN.HOSP.TC ---
Addendum entered and electronically signed by Jakub Garsia MD 03/10/25 16:31:
[id number]
Original Note:
Today's Communication/Plan
-
Disposition efforts
Benzodiazepine p.o. as needed
Assessment / Plan
Assessment / Plan
Physical Exam
General: Well Developed, Well Nourished and No Apparent Distress
HEENT: NormoCephalic, Moist mucous membranes and Atraumatic
Respiratory: Clear
Cardiac: S1/S2 and Regular Rhythm; No Murmur or Rub
GI: Soft, Non Tender, Non Distended and Normal Bowel Sounds; No Organomegaly
Rectal: Deferred by Provider
Musculoskeletal: No Clubbing, No Cyanosis and No Edema
Skin: No Rash
Neuro: Nonfocal/grossly intact
# Patient needing placement/guardianship
- Admit to care home care, observation with boarder status with regular diet and regular activity with full ambulatory privileges to walk outside with supervision
- Patient has been in the emergency room since 02/23 to arrange placement and guardianship
- No active medical issues
- PO lorazepam prn
History of TBI
- Continue Ativan as needed for agitation
Hyperlipidemia
Prior UTI
Full code
DVT prophylaxis�none
Regular diet
More than 30 minutes spent in discharge including
Final examination of the patient
Summarizing hospital stay
Instructions for continuing care to all relevant caregivers
Preparation of discharge records, prescriptions, and referral forms
Total time spent (in minutes): 35
Anticipated Discharge: Today
Subjective/Interval History
-
Date of Service: March 09, 2025
no acute events
Objective Data
-
Vital Signs:
Vital Signs
Temp Pulse Resp BP Pulse Ox
98.0 F 70 18 111/72 97
03/09/25 08:18 03/09/25 08:18 03/09/25 08:18 03/09/25 08:18 03/09/25 09:35
I&O
03/08/25 03/09/25 03/10/25
06:59 06:59 06:59
Intake Total 1260 / 1260 540 / 540 120 / 120
Balance 1260 / 1260 540 / 540 120 / 120
Review of Systems
-
History Source: Patient
All other systems: Not reviewed unless documented
Data Reviewed
-
Labs: Labs Reviewed by me
--- NOTE | 2025-03-09 11:57 | W.DS.TRANS ---
DC Summary - Oracle Database Developer
-
Discharge Instructions:
Discharge Diagnosis/Procedures Patient needing placement/guardianship
Diet As tolerated
Blood Work cbc and cmp 1 week
Instructions:
Stand-Alone Forms:
Changes to Home Medications: Yes
Discharge Medications:
DC Medications w/original date entered in [employer]
lorazepam 2 mg/mL oral concentrate 0.5 mg (0.25 mL) PO Q6H PRN agitation #30 mL 03/08/25
Home Medication Changes
lorazepam 2 mg/mL oral concentrate 0.5 mg (0.25 mL) PO Q6H PRN agitation #30 mL 03/08/25
Pending Results: No
== END 2025-03-09 10:15 | disposition home or self-care (01) ==
LOC: 2 NORTH 14:24
PROVIDERS: ADMITTING PHYSICIAN Hospitalist; ATTENDING PHYSICIAN Internal Medicine; EMERGENCY PHYSICIAN Emergency Medicine
DX: Z75.1 Person awaiting admission to adequate facility elsewhere (principal); Z87.820 Personal history of traumatic brain injury; Z87.440 Personal history of urinary (tract) infections; E78.00 Pure hypercholesterolemia, unspecified; R45.1 Restlessness and agitation
CPT/HCPCS: G0378